=== PATIENT | female | born 1955 | race Caucasian/White ===

== ENCOUNTER 2016-07-24 22:29 | Emergency (ER) | payer OTHER ==
[~2016-07-24] VITALS: Ht 162.6 cm; Wt 154.1 kg
[~2016-07-24 22:29] MED LIST: ABILIFY2 MG PO; ACIDOPHILUS1 EAC1 PO; ADULT LOW DOSE81 M1 PO; ADULT MULTIVI200 MCG PO; ADULT ONE DAI200 MCG PO; ADVAIR 250-501 EACH IH; ADVAIR 250/501 DISK IH; ALBUTEROL SULF8.5 GM IH; ALBUTEROL17 GM; ALDACTONE12.5 MG PO; ALLEGRA ALLERG180 MG PO; ALLEGRA180 MG PO; ALPRAZOLAM0.5 MG PO; ANIMAL CHEWS1 EACH PO; ASMANEX TW200 MICRO1 IH; ASPIR 8181 M1 PO; ASPIR 8181 MG PO; ASPIR-LOW81 MG PO; ASPIRIN325 MG PO; ASPIRIN81 M1 PO; ASPIRIN81 M2 PO; ATORVASTATIN CA10 MG PO; Asmanex Twisthaler 2 IH; Aspirin E.C. PO; BABY ASPIRIN81 M1 PO; BLACK COHOSH; BLACK COHOSH160 MG PO; CALAN120 MG PO; CALAN80 MG PO; CALCIO DEL MAR500 MG PO; CALCIUM + D SO1 EACH PO; CALCIUM + VITA1 EAC2 PO; CALCIUM + VITA1 EACH PO; CALCIUM +D & M1 EACH PO; CALCIUM 1,2001 EACH PO; CALCIUM 500 +1 EACH PO; CALCIUM 500 MG1 EACH PO; CALCIUM 600 WI1 EAC2 PO; CALCIUM500 M4 PO; CALCIUM600 MG PO; CLARITIN,ALAVAR10 MG PO; CLARITIN10 M3 PO; CLARITIN10 MG PO; CLEOCIN300 MG PO; CLINDAMYCIN HC300 MG PO; COZAAR25 MG PO; CYMBALTA60 MG PO; Claritin,Alavart PO; DAILY VITAMIN1 EAC8 PO; DEPAKOTE ER500 MG PO; DICLOFENAC SODI75 MG PO; DIGESTIVE PROB1 EACH PO; EFFEXOR XR150 MG PO; FLORASTOR250 MG PO; FUROSEMIDE20 MG PO; FUROSEMIDE40 MG PO; HYDROCODON-ACE1 EAC7 PO; IMITREX100 MG PO; Imitrex PO; K-DUR20 MEQ PO; K-LOR20 MEQ PO; KEFLEX500 MG PO; KLOR-CON M2020 MEQ PO; LASIX20 MG PO; LASIX40 MG PO; LEG CRAMP RELIEF PO; LEVAQUIN750 MG PO; LEVO-T75 MCG PO; LEVOTHYROXINE75 MCG PO; LO-DOSE ASPIRIN81 M1 PO; LOSARTAN POTASS25 MG PO; MAXAIR AUTOHALE14 GM; MAXALT MLT10 MG PO; MAXALT10 MG PO; MEDROL DOSEPAK4 MG PO; MELATIN3 MG PO; MENOPAUSE SUPPO20 MG PO; MINOCYCLINE HC100 MG PO; MOMETASONE; MONTELUKAST SOD10 MG PO; MORPHINE SULFAT15 M1 PO; MORPHINE SULFAT15 MG PO; MOTRIN IB200 MG PO; MOTRIN400 MG PO; MOTRIN600 MG PO; MULTI-VITAMIN1 EAC3 PO; MULTIVITAMIN1 EAC1 PO; MYRBETRIQ25 MG PO; Medrol PO; NAMENDA10 MG PO; NAPROXEN250 M1 PO; NASONEX17 GM BOTH NARES; NORCO 5/3251 TABLET PO; ONE DAILY WOME1 EAC2 PO; OXYCODONE-ACET1 EACH PO; PERCOCET 5/31 TABLET PO; PERCOCET 7.5-51 EACH PO; POTASSIUM CHLO20 ME1 PO; POTASSIUM CHLO20 MEQ PO; PREDNISONE20 MG PO; PREDNISONE50 MG PO; PROAIR HFA8.5 GM IH; PROBIOTIC GUMMIES PO; PROTONIX20 MG PO; PROTONIX40 MG PO; PROVENTIL HFA6.7 GM IH; PROVENTIL,2.5 MG/0.5; PROVENTIL,2.5 MG/3 M IH; PROVENTIL17 G1 IH; Protonix PO; Proventil IH; REFRESH EYE DR1 EACH BOTH EYES; REFRESH LI300 DROP/1 BOTH EYES; REFRESH OPTIVE10 ML BOTH EYES; REFRESH PLUS1 EACH BOTH EYES; REFRESH TEARS15 ML BOTH EYES; SANTYL30 GM TP; SIMVASTATIN20 MG PO; SINGULAIR10 MG PO; SPIRONOLACTONE25 MG PO; SYMBICORT60 INHALAT; SYMBICORT60 INHALAT IH; SYNTHROID75 MCG PO; SYSTANE ULTRA 015 ML BOTH EYES; Singulair PO; TOPAMAX100 MG PO; TRAMADOL HCL50 MG PO; TYLENOL EXTRA500 MG PO; TYLENOL PM1 CAPLET PO; Tamiflu PO; ULTRAM50 MG PO; VALERIAN ROOT100 MG PO; VENLAFAXINE HC150 M1; VENLAFAXINE HC150 M1 PO; VENLAFAXINE HC150 MG PO; VENTOLIN HFA18 GM IH; VERAPAMIL HCL120 M2 PO; VERAPAMIL HCL120 MG PO; VERAPAMIL HCL80 MG PO; VITAMIN C1000 MG PO; VOLTAREN 1% GE100 GM; VOLTAREN 1% GE100 GM TP; VOLTAREN75 MG PO; Voltaren PO; XARELTO20 MG PO; ZITHROMAX Z-PA250 MG PO; ZITHROMAX500 MG PO; ZOCOR20 MG PO; ZOFRAN8 MG PO; [UNRECOGNIZED DRUG - OTHER]; [UNRECOGNIZED DRUG - REMARK] PO
[2016-07-24 23:28] LABS: HEMATOCRIT 36.8 % (36.0-46.0); MCH 30.4 PG (29.0-34.0); MCHC 32.3 G/DL (30.0-36.0); MCV 93.9 FL (83-99); MEAN PLAT.VOLUME 10.5 uM^3 (9.5-12.4); PLATELET COUNT 207 K/uL (156-360); RBC DIS.WIDTH-CV 14.8 % (11.8-14.6); RBC DIS.WIDTH-SD 47.9 % (39-53); RED BLOOD COUNT 3.92 M/uL (3.80-5.20); WHITE BLOOD COUNT 7.4 K/uL (4.1-10.2)
[2016-07-24 23:44] LABS: CHLORIDE 104 mEq/L (99-109); POTASSIUM 3.9 mEq/L (3.7-5.4); SODIUM 142 mEq/L (136-147)
[2016-07-24 23:47] LABS: GLUCOSE 113 mg/dL (70-99)
[2016-07-24 23:48] LABS: ANION GAP 9 MEQ/L (2-14)
[2016-07-24 23:49] LABS: TOTAL BILIRUBIN 0.3 mg/dL (0.0-1.0)
[2016-07-24 23:50] LABS: ALKALINE PHOSPHATASE 87 IU/L (3-129); GFR ESTIMATE (CALCULATED) > 59 mL/min/; TROP-I INTERPRETATION NEGATIVE; TROPONIN-I < 0.01 ng/mL (0.0-0.30)
[2016-07-24 23:51] LABS: UREA NITROGEN (BUN) 20 mg/dL (9-23)
[2016-07-24 23:54] LABS: LIPASE 20 U/L (1.0-51.0)
[2016-07-25 01:51] LABS: TROP-I INTERPRETATION NEGATIVE; TROPONIN-I < 0.01 ng/mL (0.0-0.30)
[2016-07-25 02:00] VITALS: BP 112/55
== END 2016-07-25 02:51 | disposition home or self-care (01) ==
LOC: EME 22:29
PROVIDERS: Emergency Medicine
DX: R07.9 Chest pain, unspecified (principal); J45.909 Unspecified asthma, uncomplicated; I48.91 Unspecified atrial fibrillation; K21.9 Gastro-esophageal reflux disease without esophagitis; E78.5 Hyperlipidemia, unspecified; Z86.718 Personal history of other venous thrombosis and embolism
CPT/HCPCS: 71010; 80053; 83690; 83880; 84484; 85027; 93005; 99281; 99285

== ENCOUNTER 2016-08-08 23:34 | Emergency (ER) | payer OTHER ==
[~2016-08-08] VITALS: Ht 162.6 cm; Wt 151.4 kg
[2016-08-09 00:28] LABS: HEMATOCRIT 37.6 % (36.0-46.0); MCH 30.2 PG (29.0-34.0); MCHC 32.2 G/DL (30.0-36.0); MCV 93.8 FL (83-99); MEAN PLAT.VOLUME 10.5 uM^3 (9.5-12.4); PLATELET COUNT 195 K/uL (156-360); RBC DIS.WIDTH-CV 14.7 % (11.8-14.6); RED BLOOD COUNT 4.01 M/uL (3.80-5.20); WHITE BLOOD COUNT 7.1 K/uL (4.1-10.2)
[2016-08-09 00:45] LABS: CHLORIDE 101 mEq/L (99-109); POTASSIUM 4.4 mEq/L (3.7-5.4); SODIUM 140 mEq/L (136-147)
[2016-08-09 00:47] LABS: GLUCOSE 101 mg/dL (70-99)
[2016-08-09 00:48] LABS: ANION GAP 11 MEQ/L (2-14)
[2016-08-09 00:51] LABS: GFR ESTIMATE (CALCULATED) > 59 mL/min/
[2016-08-09 00:52] LABS: UREA NITROGEN (BUN) 18 mg/dL (9-23)
[2016-08-09 00:55] LABS: TROP-I INTERPRETATION NEGATIVE; TROPONIN-I < 0.01 ng/mL (0.0-0.30)
[2016-08-09 02:03] LABS: TROP-I INTERPRETATION NEGATIVE; TROPONIN-I < 0.01 ng/mL (0.0-0.30)
[2016-08-09 02:53] VITALS: BP 117/76
== END 2016-08-09 02:55 | disposition home or self-care (01) ==
LOC: EME → EDBD 23:34 → EME 23:34
PROVIDERS: Emergency Medicine
DX: R07.9 Chest pain, unspecified (principal); J45.909 Unspecified asthma, uncomplicated; I50.9 Heart failure, unspecified; G89.29 Other chronic pain; E78.5 Hyperlipidemia, unspecified; K21.9 Gastro-esophageal reflux disease without esophagitis; Z86.718 Personal history of other venous thrombosis and embolism
CPT/HCPCS: 71020; 80048; 84484; 85027; 93005; 99281; 99284

== ENCOUNTER 2016-09-06 12:48 | Observation (INO) | payer OTHER ==
[~2016-09-06] VITALS: Ht 162.6 cm; Wt 150.6 kg
[2016-09-06 14:15] LABS: HEMATOCRIT 36.2 % (36.0-46.0); MCH 29.9 PG (29.0-34.0); MCV 93.3 FL (83-99); MEAN PLAT.VOLUME 10.1 uM^3 (9.5-12.4); PLATELET COUNT 200 K/uL (156-360); RBC DIS.WIDTH-CV 14.2 % (11.8-14.6); RBC DIS.WIDTH-SD 46.3 % (39-53); RED BLOOD COUNT 3.88 M/uL (3.80-5.20)
[2016-09-06 14:24] LABS: CHLORIDE 103 mEq/L (99-109); POTASSIUM 4.1 mEq/L (3.7-5.4); SODIUM 141 mEq/L (136-147)
[2016-09-06 14:26] LABS: GLUCOSE 93 mg/dL (70-99)
[2016-09-06 14:27] LABS: ANION GAP 8 MEQ/L (2-14)
[2016-09-06 14:28] LABS: TOTAL BILIRUBIN 0.6 mg/dL (0.0-1.0)
[2016-09-06 14:30] LABS: ALKALINE PHOSPHATASE 87 IU/L (3-129); GFR ESTIMATE (CALCULATED) > 59 mL/min/
[2016-09-06 14:31] LABS: UREA NITROGEN (BUN) 17 mg/dL (9-23)
[2016-09-06 14:44] LABS: TROP-I INTERPRETATION NEGATIVE; TROPONIN-I < 0.01 ng/mL (0.0-0.30)
[2016-09-06] MEDS ORDERED: MELATONIN10 M1 PO (18:34)
[2016-09-06 19:48] VITALS: BP 145/85
[2016-09-06 20:00] VITALS: BP 122/60
[2016-09-06 21:53] LABS: TROP-I INTERPRETATION NEGATIVE; TROPONIN-I < 0.01 ng/mL (0.0-0.30)
[2016-09-07 00:11] VITALS: BP 136/66
[2016-09-07 02:34] LABS: HEMATOCRIT 35.8 % (36.0-46.0); MCH 29.8 PG (29.0-34.0); MCHC 31.8 G/DL (30.0-36.0); MCV 93.7 FL (83-99); MEAN PLAT.VOLUME 10.1 uM^3 (9.5-12.4); PLATELET COUNT 188 K/uL (156-360); RBC DIS.WIDTH-CV 14.4 % (11.8-14.6); RBC DIS.WIDTH-SD 46.8 % (39-53); RED BLOOD COUNT 3.82 M/uL (3.80-5.20); WHITE BLOOD COUNT 6.6 K/uL (4.1-10.2)
[2016-09-07 02:57] LABS: TROP-I INTERPRETATION NEGATIVE; TROPONIN-I < 0.01 ng/mL (0.0-0.30)
[2016-09-07 03:05] LABS: CHLORIDE 105 mEq/L (99-109); SODIUM 144 mEq/L (136-147)
[2016-09-07 03:07] LABS: GLUCOSE 95 mg/dL (70-99)
[2016-09-07 03:09] LABS: ANION GAP 8 MEQ/L (2-14); TOTAL BILIRUBIN 0.5 mg/dL (0.0-1.0)
[2016-09-07 03:11] LABS: ALKALINE PHOSPHATASE 87 IU/L (3-129); GFR ESTIMATE (CALCULATED) > 59 mL/min/
[2016-09-07 03:12] LABS: UREA NITROGEN (BUN) 18 mg/dL (9-23)
[2016-09-07 08:20] VITALS: BP 120/56
== END 2016-09-07 13:21 | disposition home or self-care (01) ==
LOC: EME → EDBD 12:48 → EDOF 18:30 → 5WEST 19:49
PROVIDERS: Emergency Medicine; Internal Medicine
DX: R07.9 Chest pain, unspecified (principal); I10 Essential (primary) hypertension; E78.5 Hyperlipidemia, unspecified; E66.01 Morbid (severe) obesity due to excess calories; Z68.43 Body mass index [BMI] 50.0-59.9, adult; I48.0 Paroxysmal atrial fibrillation; K21.9 Gastro-esophageal reflux disease without esophagitis; R42 Dizziness and giddiness; R11.0 Nausea; Z79.01 Long term (current) use of anticoagulants; E03.9 Hypothyroidism, unspecified; F32.9 Major depressive disorder, single episode, unspecified; D64.9 Anemia, unspecified; Z88.5 Allergy status to narcotic agent; Z88.7 Allergy status to serum and vaccine; Z88.2 Allergy status to sulfonamides; Z88.8 Allergy status to other drugs, medicaments and biological substances
CPT/HCPCS: 71010; 80053; 84484; 85027; 93005; 94640; 94640 76; 99202; 99281; 99285; G0378

== ENCOUNTER 2016-09-17 23:20 | Observation (INO) | payer OTHER ==
[~2016-09-17] VITALS: Ht 162.6 cm; Wt 155.0 kg
[~2016-09-17 23:20] MED LIST changes: +MELATONIN10 M1 PO
[2016-09-17 23:58] LABS: HEMATOCRIT 39.7 % (36.0-46.0); MCH 30.3 PG (29.0-34.0); MCHC 32.5 G/DL (30.0-36.0); MCV 93.2 FL (83-99); MEAN PLAT.VOLUME 10.4 uM^3 (9.5-12.4); PLATELET COUNT 198 K/uL (156-360); RBC DIS.WIDTH-CV 14.2 % (11.8-14.6); RED BLOOD COUNT 4.26 M/uL (3.80-5.20); WHITE BLOOD COUNT 7.5 K/uL (4.1-10.2)
[2016-09-18 00:08] LABS: CHLORIDE 102 mEq/L (99-109); POTASSIUM 4.1 mEq/L (3.7-5.4); SODIUM 142 mEq/L (136-147)
[2016-09-18 00:10] LABS: GLUCOSE 98 mg/dL (70-99)
[2016-09-18 00:11] LABS: ANION GAP 11 MEQ/L (2-14)
[2016-09-18 00:14] LABS: GFR ESTIMATE (CALCULATED) > 59 mL/min/; UREA NITROGEN (BUN) 19 mg/dL (9-23)
[2016-09-18 00:18] LABS: TROP-I INTERPRETATION NEGATIVE; TROPONIN-I 0.02 ng/mL (0.0-0.30)
[2016-09-18] MEDS ORDERED: VERAPAMIL HCL120 MG PO (01:50)
[2016-09-18] MEDS ORDERED: FLEXERIL5 MG PO (01:52)
[2016-09-18] MEDS ORDERED: TYLENOL REGULA325 MG PO (01:53)
[2016-09-18 03:05] LABS: TOTAL BILIRUBIN 0.2 mg/dL (0.0-1.0)
[2016-09-18 03:07] VITALS: BP 139/76
[2016-09-18 03:07] LABS: ALKALINE PHOSPHATASE 96 IU/L (3-129)
[2016-09-18 03:09] LABS: DIRECT BILIRUBIN 0.1 mg/dL (0.0-0.3)
[2016-09-18 07:01] LABS: TROP-I INTERPRETATION NEGATIVE; TROPONIN-I 0.01 ng/mL (0.0-0.30)
[2016-09-18 07:32] VITALS: BP 114/72
[2016-09-18 09:40] VITALS: BP 116/67
[2016-09-18 10:59] VITALS: BP 117/70
[2016-09-18 11:51] VITALS: BP 113/70
[2016-09-18 13:03] LABS: TROP-I INTERPRETATION NEGATIVE; TROPONIN-I < 0.01 ng/mL (0.0-0.30)
[2016-09-18 16:04] VITALS: BP 123/74
== END 2016-09-18 20:11 | disposition home or self-care (01) ==
LOC: EME 23:20 → EDOF 09-18 02:15 → 5WEST 09-18 02:15
PROVIDERS: Hospitalist
DX: R07.89 Other chest pain (principal); I48.0 Paroxysmal atrial fibrillation; E86.0 Dehydration; I11.0 Hypertensive heart disease with heart failure; I50.30 Unspecified diastolic (congestive) heart failure; R42 Dizziness and giddiness; Z79.01 Long term (current) use of anticoagulants; E66.01 Morbid (severe) obesity due to excess calories; Z68.43 Body mass index [BMI] 50.0-59.9, adult; I89.0 Lymphedema, not elsewhere classified; I25.10 Atherosclerotic heart disease of native coronary artery without angina pectoris; Z86.718 Personal history of other venous thrombosis and embolism; F41.9 Anxiety disorder, unspecified; F32.9 Major depressive disorder, single episode, unspecified; E78.5 Hyperlipidemia, unspecified; E03.9 Hypothyroidism, unspecified; Z87.11 Personal history of peptic ulcer disease; G43.909 Migraine, unspecified, not intractable, without status migrainosus
CPT/HCPCS: 71020; 80048; 80076; 84484; 85027; 85379; 93005; 94640; 99202; 99281; 99285; G0378; J7030

== ENCOUNTER 2016-09-30 10:56 | Emergency (ER) | payer OTHER ==
[~2016-09-30] VITALS: Ht 162.6 cm; Wt 152.5 kg
[~2016-09-30 10:56] MED LIST changes: +FLEXERIL5 MG PO; +TYLENOL REGULA325 MG PO
[2016-09-30 13:10] VITALS: BP 132/97
== END 2016-09-30 13:10 | disposition home or self-care (01) ==
LOC: EME → EDBD 10:56 → EME 13:10
DX: S80.01XA Contusion of right knee, initial encounter (principal); S80.02XA Contusion of left knee, initial encounter; W06.XXXA Fall from bed, initial encounter; Z88.7 Allergy status to serum and vaccine; Z88.2 Allergy status to sulfonamides; Z88.6 Allergy status to analgesic agent
CPT/HCPCS: 73564; 99281; 99284

== ENCOUNTER 2016-10-08 00:58 | Emergency (ER) | payer OTHER ==
[~2016-10-08] VITALS: Ht 162.6 cm; Wt 150.4 kg
[2016-10-08 02:13] LABS: HEMATOCRIT 39.5 % (36.0-46.0); MCHC 30.9 G/DL (30.0-36.0); MEAN PLAT.VOLUME 10.7 uM^3 (9.5-12.4); PLATELET COUNT 191 K/uL (156-360); RBC DIS.WIDTH-SD 48.3 % (39-53); WHITE BLOOD COUNT 7.3 K/uL (4.1-10.2)
[2016-10-08 02:28] LABS: CHLORIDE 102 mEq/L (99-109); POTASSIUM 4.3 mEq/L (3.7-5.4); SODIUM 141 mEq/L (136-147)
[2016-10-08 02:29] LABS: GLUCOSE 97 mg/dL (70-99)
[2016-10-08 02:31] LABS: ANION GAP 11 MEQ/L (2-14)
[2016-10-08 02:33] LABS: GFR ESTIMATE (CALCULATED) > 59 mL/min/
[2016-10-08 02:34] LABS: UREA NITROGEN (BUN) 17 mg/dL (9-23)
[2016-10-08 02:35] LABS: TROP-I INTERPRETATION NEGATIVE; TROPONIN-I < 0.01 ng/mL (0.0-0.30)
[2016-10-08 05:07] LABS: INTER. NORMALIZED RATIO 1.5; PROTHROMBIN TIME 15.7 (9.2-11.2); PTT 44.6 (25-32)
[2016-10-08 05:13] LABS: TROP-I INTERPRETATION NEGATIVE; TROPONIN-I < 0.01 ng/mL (0.0-0.30)
[2016-10-08 06:29] VITALS: BP 116/62
== END 2016-10-08 06:37 | disposition home or self-care (01) ==
LOC: EME 00:58
PROVIDERS: Emergency Medicine
DX: R07.89 Other chest pain (principal); I48.91 Unspecified atrial fibrillation; Z79.01 Long term (current) use of anticoagulants; J45.909 Unspecified asthma, uncomplicated; I11.0 Hypertensive heart disease with heart failure; I50.9 Heart failure, unspecified; G89.29 Other chronic pain; E78.5 Hyperlipidemia, unspecified; I25.2 Old myocardial infarction; K21.9 Gastro-esophageal reflux disease without esophagitis; Z87.442 Personal history of urinary calculi; Z86.718 Personal history of other venous thrombosis and embolism
CPT/HCPCS: 71020; 80048; 84484; 85027; 85610; 85730; 93005; 99281; 99284

== ENCOUNTER 2016-10-23 23:42 | Emergency (ER) | payer OTHER ==
[~2016-10-23] VITALS: Ht 162.6 cm; Wt 152.3 kg
[2016-10-24 00:03] LABS: HEMATOCRIT 39.1 % (36.0-46.0); MCH 29.2 PG (29.0-34.0); MCHC 31.2 G/DL (30.0-36.0); MCV 93.5 FL (83-99); MEAN PLAT.VOLUME 9.9 uM^3 (9.5-12.4); PLATELET COUNT 200 K/uL (156-360); RBC DIS.WIDTH-CV 13.8 % (11.8-14.6); RBC DIS.WIDTH-SD 47.2 % (39-53); RED BLOOD COUNT 4.18 M/uL (3.80-5.20); WHITE BLOOD COUNT 7.1 K/uL (4.1-10.2)
[2016-10-24 00:25] LABS: TROP-I INTERPRETATION NEGATIVE; TROPONIN-I < 0.01 ng/mL (0.0-0.30)
[2016-10-24 00:29] LABS: D-DIMER ELISA 0.26 mg/L FEU (< 0.57); INTER. NORMALIZED RATIO 1.1; PROTHROMBIN TIME 11.7 (9.2-11.2); PTT 32.5 (25-32)
[2016-10-24 00:30] LABS: CHLORIDE 102 mEq/L (99-109); POTASSIUM 4.2 mEq/L (3.7-5.4); SODIUM 142 mEq/L (136-147)
[2016-10-24 00:32] LABS: GLUCOSE 97 mg/dL (70-99)
[2016-10-24 00:33] LABS: ANION GAP 9 MEQ/L (2-14)
[2016-10-24 00:36] LABS: GFR ESTIMATE (CALCULATED) > 59 mL/min/
[2016-10-24 00:37] LABS: UREA NITROGEN (BUN) 19 mg/dL (9-23)
[2016-10-24 03:15] LABS: TROP-I INTERPRETATION NEGATIVE; TROPONIN-I < 0.01 ng/mL (0.0-0.30)
[2016-10-24 03:54] VITALS: BP 129/60
== END 2016-10-24 03:56 | disposition home or self-care (01) ==
LOC: EME 23:42
PROVIDERS: Emergency Medicine
DX: R07.9 Chest pain, unspecified (principal); R42 Dizziness and giddiness; I11.0 Hypertensive heart disease with heart failure; I50.9 Heart failure, unspecified; E78.5 Hyperlipidemia, unspecified; I25.2 Old myocardial infarction; Z88.7 Allergy status to serum and vaccine; Z88.2 Allergy status to sulfonamides; Z88.6 Allergy status to analgesic agent
CPT/HCPCS: 71020; 80048; 84484; 85027; 85379; 85610; 85730; 93005; 99281; 99283

== ENCOUNTER 2016-11-13 00:13 | Observation (INO) | payer OTHER ==
[~2016-11-13] VITALS: Ht 162.6 cm; Wt 144.9 kg
[2016-11-13 00:59] LABS: MCH 29.1 PG (29.0-34.0); MCHC 32.1 G/DL (30.0-36.0); MCV 90.9 FL (83-99); MEAN PLAT.VOLUME 10.6 uM^3 (9.5-12.4); PLATELET COUNT 194 K/uL (156-360); RBC DIS.WIDTH-CV 14.4 % (11.8-14.6); RBC DIS.WIDTH-SD 47.9 % (39-53); RED BLOOD COUNT 4.29 M/uL (3.80-5.20); WHITE BLOOD COUNT 8.4 K/uL (4.1-10.2)
[2016-11-13 01:09] LABS: CHLORIDE 102 mEq/L (99-109); POTASSIUM 4.1 mEq/L (3.7-5.4); SODIUM 140 mEq/L (136-147)
[2016-11-13 01:11] LABS: GLUCOSE 96 mg/dL (70-99)
[2016-11-13 01:12] LABS: ANION GAP 11 MEQ/L (2-14)
[2016-11-13 01:15] LABS: GFR ESTIMATE (CALCULATED) > 59 mL/min/
[2016-11-13 01:16] LABS: UREA NITROGEN (BUN) 18 mg/dL (9-23)
[2016-11-13 01:20] LABS: TROP-I INTERPRETATION NEGATIVE; TROPONIN-I < 0.01 ng/mL (0.0-0.30)
[2016-11-13 02:08] LABS: INTER. NORMALIZED RATIO 1.4; PROTHROMBIN TIME 14.4 (9.2-11.2); PTT 41.1 (25-32)
[2016-11-13 05:28] VITALS: BP 118/59
[2016-11-13 07:10] VITALS: BP 118/67
[2016-11-13 10:27] LABS: TROP-I INTERPRETATION NEGATIVE; TROPONIN-I < 0.01 ng/mL (0.0-0.30)
[2016-11-13 12:56] VITALS: BP 112/62
[2016-11-13] MEDS ORDERED: CALAN80 MG PO (13:49)
[2016-11-13 15:33] LABS: TROP-I INTERPRETATION NEGATIVE; TROPONIN-I < 0.01 ng/mL (0.0-0.30)
[2016-11-13 16:09] VITALS: BP 100/55
== END 2016-11-13 18:07 | disposition home or self-care (01) ==
LOC: EME → EDBD 00:13 → EDOF 03:34 → 5WEST 03:34
PROVIDERS: Emergency Medicine; Hospitalist; Internal Medicine
DX: R07.89 Other chest pain (principal); I11.0 Hypertensive heart disease with heart failure; I48.91 Unspecified atrial fibrillation; I50.30 Unspecified diastolic (congestive) heart failure; I25.10 Atherosclerotic heart disease of native coronary artery without angina pectoris; G89.29 Other chronic pain; E03.9 Hypothyroidism, unspecified; E78.5 Hyperlipidemia, unspecified; Z79.01 Long term (current) use of anticoagulants; E66.01 Morbid (severe) obesity due to excess calories; Z68.43 Body mass index [BMI] 50.0-59.9, adult; J45.909 Unspecified asthma, uncomplicated
CPT/HCPCS: 71010; 80048; 84484; 85027; 85610; 85730; 93005; 99202; 99281; 99285; G0378

== ENCOUNTER 2016-12-03 22:33 | Emergency (ER) | payer OTHER ==
[~2016-12-03] VITALS: Ht 162.6 cm; Wt 149.4 kg
[2016-12-03 23:02] LABS: EOSINOPHIL (%) 1.9 % (0-5); EOSINOPHIL COUNT 0.2 K/uL (0-0.3); IMMATURE GRANULOCYTE (%) 0.6 % (0.0-0.7); IMMATURE GRANULOCYTE COUNT 0.1 K/uL; INSTRUMENT ABS NEUTROPHIL CT 5.1 K/uL; LYMPHOCYTE COUNT 2.5 K/uL (1.0-2.8); MCH 29.6 PG (29.0-34.0); MCHC 32.6 G/DL (30.0-36.0); MCV 90.9 FL (83-99); MEAN PLAT.VOLUME 10.2 uM^3 (9.5-12.4); MONOCYTE (%) 8.2 % (3-12); MONOCYTE COUNT 0.7 K/uL (0-0.8); NEUTROPHIL (%) 59.9 % (45-76); NEUTROPHIL COUNT 5.1 K/uL (1.8-6.4); PLATELET COUNT 204 K/uL (156-360); RBC DIS.WIDTH-CV 14.6 % (11.8-14.6); RBC DIS.WIDTH-SD 48.5 % (39-53); RED BLOOD COUNT 4.29 M/uL (3.80-5.20); WHITE BLOOD COUNT 8.5 K/uL (4.1-10.2)
[2016-12-03 23:09] LABS: CHLORIDE 103 mEq/L (99-109); POTASSIUM 3.4 mEq/L (3.7-5.4); SODIUM 141 mEq/L (136-147)
[2016-12-03 23:10] LABS: MAGNESIUM 1.8 mg/dL (1.3-2.7)
[2016-12-03 23:11] LABS: GLUCOSE 101 mg/dL (70-99)
[2016-12-03 23:12] LABS: ANION GAP 11 MEQ/L (2-14)
[2016-12-03 23:15] LABS: GFR ESTIMATE (CALCULATED) > 59 mL/min/; INTER. NORMALIZED RATIO 1.4; PROTHROMBIN TIME 14.4 (9.2-11.2)
[2016-12-03 23:16] LABS: UREA NITROGEN (BUN) 16 mg/dL (9-23)
[2016-12-03 23:23] LABS: TROP-I INTERPRETATION NEGATIVE; TROPONIN-I < 0.01 ng/mL (0.0-0.30)
[2016-12-04 02:41] LABS: TROP-I INTERPRETATION NEGATIVE; TROPONIN-I < 0.01 ng/mL (0.0-0.30)
[2016-12-04 03:05] VITALS: BP 124/81
== END 2016-12-04 03:30 | disposition home or self-care (01) ==
LOC: EME 22:33
PROVIDERS: Emergency Medicine
DX: R07.9 Chest pain, unspecified (principal); I50.9 Heart failure, unspecified; I10 Essential (primary) hypertension; E78.5 Hyperlipidemia, unspecified; J45.909 Unspecified asthma, uncomplicated; I48.91 Unspecified atrial fibrillation; Z86.718 Personal history of other venous thrombosis and embolism; Z79.01 Long term (current) use of anticoagulants
CPT/HCPCS: 71010; 80048; 83735; 84484; 85025; 85610; 85730; 93005; 99281; 99285

== ENCOUNTER 2016-12-29 23:46 | Emergency (ER) | payer OTHER ==
[~2016-12-29] VITALS: Ht 162.6 cm; Wt 145.4 kg
[2016-12-30 00:24] LABS: HEMATOCRIT 38.2 % (36.0-46.0); MCHC 31.4 G/DL (30.0-36.0); MCV 92.3 FL (83-99); MEAN PLAT.VOLUME 10.5 uM^3 (9.5-12.4); PLATELET COUNT 199 K/uL (156-360); RBC DIS.WIDTH-SD 51.3 % (39-53); RED BLOOD COUNT 4.14 M/uL (3.80-5.20)
[2016-12-30 00:35] LABS: CHLORIDE 102 mEq/L (99-109); POTASSIUM 3.8 mEq/L (3.7-5.4); SODIUM 144 mEq/L (136-147)
[2016-12-30 00:37] LABS: GLUCOSE 93 mg/dL (70-99)
[2016-12-30 00:38] LABS: ANION GAP 13 MEQ/L (2-14)
[2016-12-30 00:41] LABS: GFR ESTIMATE (CALCULATED) > 59 mL/min/
[2016-12-30 00:42] LABS: UREA NITROGEN (BUN) 16 mg/dL (9-23)
[2016-12-30 00:46] LABS: TROP-I INTERPRETATION NEGATIVE; TROPONIN-I < 0.01 ng/mL (0.0-0.30)
[2016-12-30 02:38] LABS: TOTAL BILIRUBIN 0.3 mg/dL (0.0-1.0)
[2016-12-30 02:39] LABS: ALKALINE PHOSPHATASE 88 IU/L (3-129)
[2016-12-30 02:41] LABS: PTT 36.4 (25-32)
[2016-12-30 02:42] LABS: DIRECT BILIRUBIN 0.2 mg/dL (0.0-0.3)
[2016-12-30 02:43] LABS: LIPASE 26 U/L (1.0-51.0)
[2016-12-30 03:16] LABS: TROP-I INTERPRETATION NEGATIVE; TROPONIN-I < 0.01 ng/mL (0.0-0.30)
[2016-12-30 03:47] LABS: INTER. NORMALIZED RATIO 1.3; PROTHROMBIN TIME 13.3 (9.2-11.2)
[2016-12-30 05:45] VITALS: BP 105/73
== END 2016-12-30 05:45 | disposition home or self-care (01) ==
LOC: EME 23:46
PROVIDERS: Emergency Medicine
DX: R07.89 Other chest pain (principal); I50.9 Heart failure, unspecified; I10 Essential (primary) hypertension; J45.909 Unspecified asthma, uncomplicated; Z87.442 Personal history of urinary calculi; Z79.01 Long term (current) use of anticoagulants; K21.9 Gastro-esophageal reflux disease without esophagitis; E78.5 Hyperlipidemia, unspecified; Z88.7 Allergy status to serum and vaccine; Z88.2 Allergy status to sulfonamides; Z88.8 Allergy status to other drugs, medicaments and biological substances; Z88.5 Allergy status to narcotic agent
CPT/HCPCS: 71020; 80048; 80076; 83690; 83880; 84484; 85027; 85610; 85730; 93005; 99281; 99284

== ENCOUNTER 2017-01-09 22:11 | Emergency (ER) | payer OTHER ==
[~2017-01-09] VITALS: Ht 162.6 cm; Wt 82.1 kg
[2017-01-09 22:50] LABS: HEMATOCRIT 37.3 % (36.0-46.0); MCH 29.5 PG (29.0-34.0); MCHC 32.2 G/DL (30.0-36.0); MCV 91.6 FL (83-99); MEAN PLAT.VOLUME 10.1 uM^3 (9.5-12.4); PLATELET COUNT 200 K/uL (156-360); RBC DIS.WIDTH-CV 14.9 % (11.8-14.6); RBC DIS.WIDTH-SD 50.5 % (39-53); RED BLOOD COUNT 4.07 M/uL (3.80-5.20); WHITE BLOOD COUNT 7.9 K/uL (4.1-10.2)
[2017-01-09 23:01] LABS: CHLORIDE 103 mEq/L (99-109); SODIUM 140 mEq/L (136-147)
[2017-01-09 23:03] LABS: GLUCOSE 96 mg/dL (70-99)
[2017-01-09 23:04] LABS: ANION GAP 9 MEQ/L (2-14)
[2017-01-09 23:07] LABS: GFR ESTIMATE (CALCULATED) > 59 mL/min/
[2017-01-09 23:08] LABS: UREA NITROGEN (BUN) 19 mg/dL (9-23)
[2017-01-09 23:11] LABS: TROP-I INTERPRETATION NEGATIVE; TROPONIN-I < 0.01 ng/mL (0.0-0.30)
[2017-01-10 01:50] LABS: TROP-I INTERPRETATION NEGATIVE; TROPONIN-I < 0.01 ng/mL (0.0-0.30)
[2017-01-10 02:05] VITALS: BP 133/78
== END 2017-01-10 02:07 | disposition home or self-care (01) ==
LOC: EME → EDBD 22:11 → EME 01-10 02:07
PROVIDERS: Emergency Medicine
DX: R07.89 Other chest pain (principal); J45.909 Unspecified asthma, uncomplicated; I11.0 Hypertensive heart disease with heart failure; I50.9 Heart failure, unspecified; E11.9 Type 2 diabetes mellitus without complications; K21.9 Gastro-esophageal reflux disease without esophagitis; E78.5 Hyperlipidemia, unspecified; Z87.442 Personal history of urinary calculi
CPT/HCPCS: 71020; 80048; 83880; 84376 90; 84484; 85027; 93005; 99281; 99284

== ENCOUNTER 2017-02-22 00:07 | Emergency (ER) | payer OTHER ==
[~2017-02-22] VITALS: Ht 162.6 cm; Wt 146.3 kg
[2017-02-22 00:32] LABS: HEMATOCRIT 36.7 % (36.0-46.0); MCH 29.7 PG (29.0-34.0); MCHC 31.9 G/DL (30.0-36.0); MCV 93.1 FL (83-99); MEAN PLAT.VOLUME 10.3 uM^3 (9.5-12.4); PLATELET COUNT 201 K/uL (156-360); RBC DIS.WIDTH-CV 14.2 % (11.8-14.6); RBC DIS.WIDTH-SD 47.9 % (39-53); RED BLOOD COUNT 3.94 M/uL (3.80-5.20); WHITE BLOOD COUNT 6.7 K/uL (4.1-10.2)
[2017-02-22 00:38] LABS: INTER. NORMALIZED RATIO 1.4; PROTHROMBIN TIME 15.6 SEC (10.2-12.9)
[2017-02-22 00:41] LABS: CHLORIDE 103 mEq/L (99-109); POTASSIUM 4.2 mEq/L (3.7-5.4); PTT 35.2 SEC (25-37); SODIUM 143 mEq/L (136-147)
[2017-02-22 00:43] LABS: GLUCOSE 85 mg/dL (70-99)
[2017-02-22 00:44] LABS: ANION GAP 11 MEQ/L (2-14)
[2017-02-22 00:47] LABS: GFR ESTIMATE (CALCULATED) 44 mL/min/; UREA NITROGEN (BUN) 23 mg/dL (9-23)
[2017-02-22 00:55] LABS: TROP-I INTERPRETATION NEGATIVE; TROPONIN-I < 0.01 ng/mL (0.0-0.30)
[2017-02-22 01:36] VITALS: BP 120/81
== END 2017-02-22 01:38 | disposition home or self-care (01) ==
LOC: EME → EDBD 00:07 → EME 01:38
PROVIDERS: Emergency Medicine
DX: R07.9 Chest pain, unspecified (principal); I11.0 Hypertensive heart disease with heart failure; I50.9 Heart failure, unspecified; I25.2 Old myocardial infarction; E78.5 Hyperlipidemia, unspecified; K21.9 Gastro-esophageal reflux disease without esophagitis; I48.91 Unspecified atrial fibrillation; F32.9 Major depressive disorder, single episode, unspecified; F41.9 Anxiety disorder, unspecified; J45.909 Unspecified asthma, uncomplicated; Z87.442 Personal history of urinary calculi; Z88.7 Allergy status to serum and vaccine; Z88.2 Allergy status to sulfonamides; Z88.5 Allergy status to narcotic agent
CPT/HCPCS: 71020; 80048; 84484; 85027; 85610; 85730; 93005; 99281; 99284

== ENCOUNTER 2017-03-05 01:15 | Emergency (ER) | payer OTHER ==
[~2017-03-05] VITALS: Ht 162.6 cm; Wt 145.0 kg
[2017-03-05 01:59] LABS: EOSINOPHIL (%) 1.8 % (0-5); EOSINOPHIL COUNT 0.1 K/uL (0-0.3); HEMATOCRIT 39.3 % (36.0-46.0); IMMATURE GRANULOCYTE (%) 0.4 % (0.0-0.7); INSTRUMENT ABS NEUTROPHIL CT 4.1 K/uL; LYMPHOCYTE COUNT 2.2 K/uL (1.0-2.8); MCH 29.4 PG (29.0-34.0); MCHC 31.6 G/DL (30.0-36.0); MCV 93.1 FL (83-99); MEAN PLAT.VOLUME 10.4 uM^3 (9.5-12.4); MONOCYTE (%) 10.3 % (3-12); MONOCYTE COUNT 0.8 K/uL (0-0.8); NEUTROPHIL (%) 56.6 % (45-76); NEUTROPHIL COUNT 4.1 K/uL (1.8-6.4); PLATELET COUNT 207 K/uL (156-360); RBC DIS.WIDTH-SD 47.6 % (39-53); RED BLOOD COUNT 4.22 M/uL (3.80-5.20); WHITE BLOOD COUNT 7.3 K/uL (4.1-10.2)
[2017-03-05 02:05] LABS: INTER. NORMALIZED RATIO 1.2; PROTHROMBIN TIME 13.1 SEC (10.2-12.9)
[2017-03-05 02:08] LABS: PTT 31.5 SEC (25-37)
[2017-03-05 02:17] LABS: CHLORIDE 101 mEq/L (99-109); POTASSIUM 4.2 mEq/L (3.7-5.4); SODIUM 141 mEq/L (136-147)
[2017-03-05 02:18] LABS: MAGNESIUM 2.1 mg/dL (1.3-2.7)
[2017-03-05 02:19] LABS: GLUCOSE 99 mg/dL (70-99)
[2017-03-05 02:21] LABS: ANION GAP 9 MEQ/L (2-14)
[2017-03-05 02:22] LABS: TROP-I INTERPRETATION NEGATIVE; TROPONIN-I < 0.01 ng/mL (0.0-0.30)
[2017-03-05 02:23] LABS: GFR ESTIMATE (CALCULATED) > 59 mL/min/
[2017-03-05 02:24] LABS: UREA NITROGEN (BUN) 17 mg/dL (9-23)
[2017-03-05 04:47] LABS: TROP-I INTERPRETATION NEGATIVE; TROPONIN-I < 0.01 ng/mL (0.0-0.30)
[2017-03-05 05:06] VITALS: BP 119/65
== END 2017-03-05 05:33 | disposition home or self-care (01) ==
LOC: EME → EDBD 01:15 → EME 01:15
PROVIDERS: Emergency Medicine
DX: R07.89 Other chest pain (principal); I11.0 Hypertensive heart disease with heart failure; I50.9 Heart failure, unspecified; E78.5 Hyperlipidemia, unspecified; K21.9 Gastro-esophageal reflux disease without esophagitis; J45.909 Unspecified asthma, uncomplicated; Z87.442 Personal history of urinary calculi; Z88.7 Allergy status to serum and vaccine; Z88.2 Allergy status to sulfonamides; Z88.5 Allergy status to narcotic agent
CPT/HCPCS: 71010; 80048; 83735; 84484; 85025; 85610; 85730; 93005; 99281; 99284

== ENCOUNTER 2017-03-12 12:05 | Emergency (ER) | payer OTHER ==
[~2017-03-12] VITALS: Ht 162.6 cm; Wt 140.0 kg
[2017-03-12 16:30] VITALS: BP 108/79
== END 2017-03-12 16:30 | disposition home or self-care (01) ==
LOC: EME 12:05
DX: S32.2XXA Fracture of coccyx, initial encounter for closed fracture (principal); W18.30XA Fall on same level, unspecified, initial encounter; E03.9 Hypothyroidism, unspecified; E78.5 Hyperlipidemia, unspecified; I10 Essential (primary) hypertension; J45.909 Unspecified asthma, uncomplicated; Z79.01 Long term (current) use of anticoagulants; Z88.7 Allergy status to serum and vaccine; Z88.2 Allergy status to sulfonamides; Z88.5 Allergy status to narcotic agent; Z90.49 Acquired absence of other specified parts of digestive tract
CPT/HCPCS: 72100; 72220; 99281; 99283

== ENCOUNTER 2017-03-13 19:27 | Observation (INO) | payer OTHER ==
[~2017-03-13] VITALS: Ht 162.6 cm; Wt 141.0 kg
[2017-03-14] MEDS ORDERED: SYNTHROID75 MCG PO (01:55)
[2017-03-14 03:06] VITALS: BP 145/78
[2017-03-14 08:39] VITALS: BP 121/62
[2017-03-14] MEDS ORDERED: ENDOCET 5-3251 EACH PO (12:16)
[2017-03-14 12:34] VITALS: BP 97/51
[2017-03-14] MEDS ORDERED: PERCOCET 10/1 TABLET PO (23:15)
== END 2017-03-14 14:05 | disposition home or self-care (01) ==
LOC: EME 19:27 → EDOF 03-14 01:10 → ENRESERV 03-14 01:11 → 5WEST 03-14 02:59
DX: G89.11 Acute pain due to trauma (principal); S32.2XXD Fracture of coccyx, subsequent encounter for fracture with routine healing; R26.2 Difficulty in walking, not elsewhere classified; Z74.2 Need for assistance at home and no other household member able to render care; I48.0 Paroxysmal atrial fibrillation; Z79.01 Long term (current) use of anticoagulants; E66.01 Morbid (severe) obesity due to excess calories; Z68.43 Body mass index [BMI] 50.0-59.9, adult; I87.8 Other specified disorders of veins
CPT/HCPCS: 80048; 85027; 94799; 99202; 99281; 99285; G0378; G8979 GP CH; J1170; J1885

== ENCOUNTER 2017-03-14 18:27 | Emergency (ER) | payer OTHER ==
[~2017-03-14] VITALS: Ht 162.6 cm; Wt 144.2 kg
[~2017-03-14 18:27] MED LIST changes: +ENDOCET 5-3251 EACH PO
[2017-03-14 19:58] LABS: HEMATOCRIT 35.7 % (36.0-46.0); MCH 29.9 PG (29.0-34.0); MCHC 32.2 G/DL (30.0-36.0); MCV 92.7 FL (83-99); MEAN PLAT.VOLUME 10.6 uM^3 (9.5-12.4); PLATELET COUNT 154 K/uL (156-360); RBC DIS.WIDTH-CV 13.7 % (11.8-14.6); RBC DIS.WIDTH-SD 46.6 % (39-53); RED BLOOD COUNT 3.85 M/uL (3.80-5.20); WHITE BLOOD COUNT 6.2 K/uL (4.1-10.2)
[2017-03-14 20:07] LABS: CHLORIDE 102 mEq/L (99-109); POTASSIUM 4.2 mEq/L (3.7-5.4); SODIUM 142 mEq/L (136-147)
[2017-03-14 20:09] LABS: GLUCOSE 99 mg/dL (70-99)
[2017-03-14 20:10] LABS: ANION GAP 9 MEQ/L (2-14)
[2017-03-14 20:11] LABS: TOTAL BILIRUBIN 0.5 mg/dL (0.0-1.0)
[2017-03-14 20:12] LABS: ALKALINE PHOSPHATASE 109 IU/L (3-129)
[2017-03-14 20:13] LABS: GFR ESTIMATE (CALCULATED) > 59 mL/min/
[2017-03-14 20:14] LABS: UREA NITROGEN (BUN) 18 mg/dL (9-23)
[2017-03-14] MEDS ORDERED: PERCOCET 10/1 TABLET PO (23:15)
[2017-03-15 00:09] VITALS: BP 116/74
[2017-03-16] MEDS ORDERED: PREDNISONE50 MG PO (04:36)
[2017-03-16] MEDS ORDERED: VENTOLIN HFA18 GM IH (04:36)
[2017-03-16] MEDS ORDERED: AZITHROMYCIN250 MG PO (04:36)
== END 2017-03-15 00:10 | disposition home or self-care (01) ==
LOC: EME 18:27
PROVIDERS: Emergency Medicine
DX: S32.10XA Unspecified fracture of sacrum, initial encounter for closed fracture (principal); W18.30XA Fall on same level, unspecified, initial encounter; M54.5 Low back pain; Z86.718 Personal history of other venous thrombosis and embolism; Z79.01 Long term (current) use of anticoagulants; E78.5 Hyperlipidemia, unspecified; J45.909 Unspecified asthma, uncomplicated; Z90.710 Acquired absence of both cervix and uterus; Z90.49 Acquired absence of other specified parts of digestive tract
CPT/HCPCS: 74177; 80053; 85027; 99281; 99285; J7030

== ENCOUNTER 2017-03-15 22:22 | Emergency (ER) | payer OTHER ==
[~2017-03-15] VITALS: Ht 162.6 cm; Wt 144.2 kg
[~2017-03-15 22:22] MED LIST changes: +PERCOCET 10/1 TABLET PO
[2017-03-16] MEDS ORDERED: VENTOLIN HFA18 GM IH (04:36)
[2017-03-16] MEDS ORDERED: PREDNISONE50 MG PO (04:36)
[2017-03-16] MEDS ORDERED: AZITHROMYCIN250 MG PO (04:36)
[2017-03-16 06:36] VITALS: BP 123/79
== END 2017-03-16 06:37 | disposition home or self-care (01) ==
LOC: EME 22:22
DX: R20.2 Paresthesia of skin (principal); M54.9 Dorsalgia, unspecified; M79.604 Pain in right leg; M79.605 Pain in left leg; I10 Essential (primary) hypertension; E03.9 Hypothyroidism, unspecified; E78.5 Hyperlipidemia, unspecified; I48.91 Unspecified atrial fibrillation; J45.909 Unspecified asthma, uncomplicated; Z87.442 Personal history of urinary calculi; Z90.49 Acquired absence of other specified parts of digestive tract; Z86.718 Personal history of other venous thrombosis and embolism; Z79.01 Long term (current) use of anticoagulants
CPT/HCPCS: 81003; 99281; 99284; J3010

== ENCOUNTER 2017-03-18 11:24 | Observation (INO) | payer OTHER ==
[~2017-03-18] VITALS: Ht 162.6 cm; Wt 143.0 kg
[~2017-03-18 11:24] MED LIST changes: +AZITHROMYCIN250 MG PO
[2017-03-18 12:30] LABS: EOSINOPHIL (%) 2.5 % (0-5); EOSINOPHIL COUNT 0.1 K/uL (0-0.3); HEMATOCRIT 32.4 % (36.0-46.0); IMMATURE GRANULOCYTE (%) 0.4 % (0.0-0.7); INSTRUMENT ABS NEUTROPHIL CT 3.3 K/uL; LYMPHOCYTE COUNT 1.7 K/uL (1.0-2.8); MCH 29.3 PG (29.0-34.0); MCHC 32.4 G/DL (30.0-36.0); MCV 90.5 FL (83-99); MEAN PLAT.VOLUME 10.2 uM^3 (9.5-12.4); MONOCYTE (%) 8.6 % (3-12); MONOCYTE COUNT 0.5 K/uL (0-0.8); NEUTROPHIL COUNT 3.3 K/uL (1.8-6.4); PLATELET COUNT 152 K/uL (156-360); RBC DIS.WIDTH-CV 13.3 % (11.8-14.6); RBC DIS.WIDTH-SD 44.2 % (39-53); RED BLOOD COUNT 3.58 M/uL (3.80-5.20); WHITE BLOOD COUNT 5.6 K/uL (4.1-10.2)
[2017-03-18 12:39] LABS: INTER. NORMALIZED RATIO 1.4; PROTHROMBIN TIME 15.9 SEC (10.2-12.9)
[2017-03-18 12:42] LABS: PTT 32.8 SEC (25-37)
[2017-03-18 12:43] LABS: CHLORIDE 102 mEq/L (99-109); POTASSIUM 3.4 mEq/L (3.7-5.4); SODIUM 142 mEq/L (136-147)
[2017-03-18 12:45] LABS: GLUCOSE 91 mg/dL (70-99)
[2017-03-18 12:46] LABS: ANION GAP 10 MEQ/L (2-14)
[2017-03-18 12:48] LABS: GFR ESTIMATE (CALCULATED) > 59 mL/min/
[2017-03-18 12:49] LABS: UREA NITROGEN (BUN) 12 mg/dL (9-23)
[2017-03-18 12:55] LABS: TROP-I INTERPRETATION NEGATIVE; TROPONIN-I < 0.01 ng/mL (0.0-0.30)
[2017-03-18] MEDS ORDERED: DIAZEPAM5 MG PO (15:55)
[2017-03-18 16:44] VITALS: BP 138/65
[2017-03-18 18:47] LABS: TROP-I INTERPRETATION NEGATIVE; TROPONIN-I 0.01 ng/mL (0.0-0.30)
[2017-03-18 19:14] VITALS: BP 127/65
[2017-03-19 00:49] VITALS: BP 103/59
[2017-03-19 01:22] LABS: TROP-I INTERPRETATION NEGATIVE; TROPONIN-I < 0.01 ng/mL (0.0-0.30)
[2017-03-19 03:45] VITALS: BP 117/69
[2017-03-19 06:57] LABS: EOSINOPHIL (%) 3.4 % (0-5); EOSINOPHIL COUNT 0.2 K/uL (0-0.3); HEMATOCRIT 35.9 % (36.0-46.0); IMMATURE GRANULOCYTE (%) 0.4 % (0.0-0.7); INSTRUMENT ABS NEUTROPHIL CT 2.7 K/uL; MCH 29.5 PG (29.0-34.0); MCHC 31.8 G/DL (30.0-36.0); MCV 92.8 FL (83-99); MEAN PLAT.VOLUME 10.3 uM^3 (9.5-12.4); MONOCYTE (%) 8.1 % (3-12); MONOCYTE COUNT 0.4 K/uL (0-0.8); NEUTROPHIL (%) 50.8 % (45-76); NEUTROPHIL COUNT 2.7 K/uL (1.8-6.4); PLATELET COUNT 189 K/uL (156-360); RBC DIS.WIDTH-CV 13.4 % (11.8-14.6); RED BLOOD COUNT 3.87 M/uL (3.80-5.20); WHITE BLOOD COUNT 5.3 K/uL (4.1-10.2)
[2017-03-19 07:19] VITALS: BP 105/73
[2017-03-19 07:37] LABS: ANION GAP 9 MEQ/L (2-14); CHLORIDE 103 MEQ/L (99-109); GFR ESTIMATE (CALCULATED) > 59 mL/min/; GLUCOSE 91 mg/dL (70-99); MAGNESIUM 1.8 mg/dl (1.3-2.7); POTASSIUM 3.8 MEQ/L (3.7-5.4); SAMPLE HEMOLYSIS CHECK 0; SAMPLE ICTERIC CHECK 0; SAMPLE LIPEMIA CHECK 0; SODIUM 144 MEQ/L (136-147); UREA NITROGEN (BUN) 12 mg/dL (9-23)
[2017-03-19] MEDS ORDERED: AUGMENTIN875 MG PO (12:03)
== END 2017-03-19 14:08 | disposition home or self-care (01) ==
LOC: EME 11:24 → EDOF 15:24 → 5WEST 15:24 → EDOF 15:24 → ENRESERV 15:26 → 5WEST 16:39
PROVIDERS: Emergency Medicine; Internal Medicine; Physician Assistant
DX: R07.9 Chest pain, unspecified (principal); J18.9 Pneumonia, unspecified organism; I48.0 Paroxysmal atrial fibrillation; I11.0 Hypertensive heart disease with heart failure; I50.32 Chronic diastolic (congestive) heart failure; F32.9 Major depressive disorder, single episode, unspecified; E66.01 Morbid (severe) obesity due to excess calories; E78.5 Hyperlipidemia, unspecified; F41.9 Anxiety disorder, unspecified; J45.909 Unspecified asthma, uncomplicated; Z86.718 Personal history of other venous thrombosis and embolism; E03.9 Hypothyroidism, unspecified; Z87.11 Personal history of peptic ulcer disease; Z90.49 Acquired absence of other specified parts of digestive tract; Z82.49 Family history of ischemic heart disease and other diseases of the circulatory system; Z88.2 Allergy status to sulfonamides; Z88.7 Allergy status to serum and vaccine; Z88.5 Allergy status to narcotic agent; Z88.8 Allergy status to other drugs, medicaments and biological substances; Z79.82 Long term (current) use of aspirin; Z79.01 Long term (current) use of anticoagulants
CPT/HCPCS: 71010; 80048; 83735; 84484; 85025; 85610; 85730; 87040; 93005; 99202; 99281; 99285; G0378; J0456; J0696; J7050

== ENCOUNTER 2017-03-22 11:27 | Observation (INO) | payer OTHER ==
[~2017-03-22] VITALS: Ht 162.6 cm; Wt 143.4 kg
[~2017-03-22 11:27] MED LIST changes: +AUGMENTIN875 MG PO; +DIAZEPAM5 MG PO
[2017-03-22 12:13] LABS: EOSINOPHIL (%) 2.7 % (0-5); EOSINOPHIL COUNT 0.1 K/uL (0-0.3); HEMATOCRIT 36.3 % (36.0-46.0); IMMATURE GRANULOCYTE (%) 0.4 % (0.0-0.7); INSTRUMENT ABS NEUTROPHIL CT 3.4 K/uL; LYMPHOCYTE COUNT 0.8 K/uL (1.0-2.8); MCH 29.2 PG (29.0-34.0); MCHC 31.7 G/DL (30.0-36.0); MCV 92.1 FL (83-99); MEAN PLAT.VOLUME 10.3 uM^3 (9.5-12.4); MONOCYTE (%) 9.9 % (3-12); MONOCYTE COUNT 0.5 K/uL (0-0.8); NEUTROPHIL (%) 70.1 % (45-76); NEUTROPHIL COUNT 3.4 K/uL (1.8-6.4); PLATELET COUNT 188 K/uL (156-360); RBC DIS.WIDTH-CV 13.3 % (11.8-14.6); RBC DIS.WIDTH-SD 45.4 % (39-53); RED BLOOD COUNT 3.94 M/uL (3.80-5.20); WHITE BLOOD COUNT 4.9 K/uL (4.1-10.2)
[2017-03-22 12:24] LABS: CHLORIDE 102 mEq/L (99-109); POTASSIUM 4.1 mEq/L (3.7-5.4); SODIUM 142 mEq/L (136-147)
[2017-03-22 12:25] LABS: GLUCOSE 104 mg/dL (70-99)
[2017-03-22 12:27] LABS: ANION GAP 9 MEQ/L (2-14)
[2017-03-22 12:29] LABS: GFR ESTIMATE (CALCULATED) > 59 mL/min/
[2017-03-22 12:30] LABS: UREA NITROGEN (BUN) 13 mg/dL (9-23)
[2017-03-22] MEDS ORDERED: PROBIOTIC1 EAC7 PO (15:22)
[2017-03-22] MEDS ORDERED: XARELTO20 MG PO (15:22)
[2017-03-22] MEDS ORDERED: ENDOCET 5-3251 EACH PO (15:29)
[2017-03-22] MEDS ORDERED: AUGMENTIN875 MG PO ×2 (15:30→15:35)
[2017-03-22 20:13] VITALS: BP 129/89
[2017-03-22 23:44] VITALS: BP 119/58
[2017-03-23 04:11] VITALS: BP 104/64
[2017-03-23 07:12] LABS: HEMATOCRIT 35.1 % (36.0-46.0); MCH 29.3 PG (29.0-34.0); MCHC 31.3 G/DL (30.0-36.0); MCV 93.6 FL (83-99); MEAN PLAT.VOLUME 10.4 uM^3 (9.5-12.4); PLATELET COUNT 179 K/uL (156-360); RBC DIS.WIDTH-CV 13.7 % (11.8-14.6); RBC DIS.WIDTH-SD 46.6 % (39-53); RED BLOOD COUNT 3.75 M/uL (3.80-5.20)
[2017-03-23 07:37] LABS: ANION GAP 8 MEQ/L (2-14); CHLORIDE 105 MEQ/L (99-109); GFR ESTIMATE (CALCULATED) > 59 mL/min/; GLUCOSE 84 mg/dL (70-99); POTASSIUM 3.8 MEQ/L (3.7-5.4); SAMPLE HEMOLYSIS CHECK 0; SAMPLE ICTERIC CHECK 0; SAMPLE LIPEMIA CHECK 0; SODIUM 143 MEQ/L (136-147); UREA NITROGEN (BUN) 9 mg/dL (9-23)
[2017-03-23 07:45] VITALS: BP 123/69
[2017-03-23 12:30] VITALS: BP 121/65
[2017-03-23 15:58] VITALS: BP 126/74
== END 2017-03-23 18:17 | disposition home or self-care (01) ==
LOC: EME 11:27 → EDOF 17:41 → ENRESERV 17:46 → 5WEST 19:48
PROVIDERS: Emergency Medicine; Hospitalist
DX: R42 Dizziness and giddiness (principal); R09.02 Hypoxemia; J18.9 Pneumonia, unspecified organism; I48.0 Paroxysmal atrial fibrillation; I11.0 Hypertensive heart disease with heart failure; I50.32 Chronic diastolic (congestive) heart failure; E66.01 Morbid (severe) obesity due to excess calories; Z68.43 Body mass index [BMI] 50.0-59.9, adult; Z86.718 Personal history of other venous thrombosis and embolism; E78.5 Hyperlipidemia, unspecified; J45.909 Unspecified asthma, uncomplicated; E03.9 Hypothyroidism, unspecified; M19.90 Unspecified osteoarthritis, unspecified site; F41.9 Anxiety disorder, unspecified; Z88.2 Allergy status to sulfonamides; Z88.1 Allergy status to other antibiotic agents; Z88.7 Allergy status to serum and vaccine; Z88.8 Allergy status to other drugs, medicaments and biological substances
CPT/HCPCS: 71010; 71275; 80048; 80164; 83605; 85025; 85027; 87040; 94640; 99202; 99281; 99285; G0378; G8978 GP CK; G8979 GP CI; J7030

== ENCOUNTER 2017-03-29 18:56 | Emergency (ER) | payer OTHER ==
[~2017-03-29] VITALS: Ht 162.6 cm; Wt 137.7 kg
[~2017-03-29 18:56] MED LIST changes: +PROBIOTIC1 EAC7 PO
[2017-03-29 19:23] LABS: EOSINOPHIL (%) 2.7 % (0-5); EOSINOPHIL COUNT 0.1 K/uL (0-0.3); IMMATURE GRANULOCYTE (%) 0.4 % (0.0-0.7); INSTRUMENT ABS NEUTROPHIL CT 2.9 K/uL; LYMPHOCYTE COUNT 1.6 K/uL (1.0-2.8); MCH 28.8 PG (29.0-34.0); MCHC 31.6 G/DL (30.0-36.0); MCV 91.1 FL (83-99); MEAN PLAT.VOLUME 9.7 uM^3 (9.5-12.4); MONOCYTE (%) 10.6 % (3-12); MONOCYTE COUNT 0.6 K/uL (0-0.8); NEUTROPHIL (%) 56.1 % (45-76); NEUTROPHIL COUNT 2.9 K/uL (1.8-6.4); RBC DIS.WIDTH-CV 13.4 % (11.8-14.6); RBC DIS.WIDTH-SD 45.2 % (39-53); RED BLOOD COUNT 4.06 M/uL (3.80-5.20); WHITE BLOOD COUNT 5.2 K/uL (4.1-10.2)
[2017-03-29 19:24] LABS: PLATELET COUNT 236 K/uL (156-360)
[2017-03-29 19:28] LABS: CHLORIDE 102 mEq/L (99-109); POTASSIUM 3.9 mEq/L (3.7-5.4); SODIUM 142 mEq/L (136-147)
[2017-03-29 19:31] LABS: GLUCOSE 90 mg/dL (70-99)
[2017-03-29 19:32] LABS: ANION GAP 9 MEQ/L (2-14)
[2017-03-29 19:33] LABS: TOTAL BILIRUBIN 0.6 mg/dL (0.0-1.0)
[2017-03-29 19:34] LABS: ALKALINE PHOSPHATASE 133 IU/L (3-129); GFR ESTIMATE (CALCULATED) > 59 mL/min/
[2017-03-29 19:35] LABS: UREA NITROGEN (BUN) 12 mg/dL (9-23)
[2017-03-29 19:38] LABS: LIPASE 15 U/L (1.0-51.0)
[2017-03-29 22:32] LABS: ADD MIUA? YES; BILIRUBIN NEGATIVE; BLOOD NEGATIVE; COLOR YELLOW ((YELLOW)); GLUCOSE (STRIP) NEGATIVE; KETONES NEGATIVE; LEUKOCYTES NEGATIVE; NITRITE NEGATIVE; PROTEIN (STRIP) NEGATIVE; SPECIFIC GRAVITY 1.045 (1.000-1.030); UROBILINOGEN 0.2 MG/DL (0.2-1.0)
[2017-03-29 22:35] LABS: BACTERIA NONE SEEN /HPF; EPITHELIAL CELLS 1+ /HPF; MUCUS TRACE /LPF; RED BLOOD CELLS 0-5 /HPF (0-5); UCUL ADDED? NO; WHITE BLOOD CELLS 0-5 /HPF (0-5)
[2017-03-29 23:16] VITALS: BP 134/88
== END 2017-03-30 00:09 | disposition home or self-care (01) ==
LOC: EME 18:56
PROVIDERS: Emergency Medicine
DX: R10.30 Lower abdominal pain, unspecified (principal); R11.0 Nausea; M48.56XA Collapsed vertebra, not elsewhere classified, lumbar region, initial encounter for fracture; K76.0 Fatty (change of) liver, not elsewhere classified; Z90.49 Acquired absence of other specified parts of digestive tract; Z90.710 Acquired absence of both cervix and uterus; J45.909 Unspecified asthma, uncomplicated; E78.5 Hyperlipidemia, unspecified; Z86.718 Personal history of other venous thrombosis and embolism; Z79.01 Long term (current) use of anticoagulants
CPT/HCPCS: 74177; 80053; 81003; 83605; 83690; 85025; 99281; 99285; J2405; J7030

== ENCOUNTER 2017-04-09 01:38 | Emergency (ER) | payer OTHER ==
[~2017-04-09] VITALS: Ht 162.6 cm; Wt 135.4 kg
[2017-04-09 05:19] LABS: CHLORIDE 103 mEq/L (99-109); POTASSIUM 3.7 mEq/L (3.7-5.4); SODIUM 142 mEq/L (136-147)
[2017-04-09 05:20] LABS: GLUCOSE 95 mg/dL (70-99)
[2017-04-09 05:22] LABS: ANION GAP 10 MEQ/L (2-14)
[2017-04-09 05:24] LABS: GFR ESTIMATE (CALCULATED) > 59 mL/min/
[2017-04-09 05:25] LABS: UREA NITROGEN (BUN) 21 mg/dL (9-23)
[2017-04-09 05:27] LABS: CREATINE KINASE 38 IU/L (1-294); TOTAL CK 38 IU/L (1-294)
[2017-04-09 05:37] LABS: HEMATOCRIT 37.5 % (36.0-46.0); MCH 28.7 PG (29.0-34.0); MCHC 31.2 G/DL (30.0-36.0); MCV 91.9 FL (83-99); MEAN PLAT.VOLUME 10.8 uM^3 (9.5-12.4); PLATELET COUNT 187 K/uL (156-360); RBC DIS.WIDTH-CV 13.8 % (11.8-14.6); RBC DIS.WIDTH-SD 46.5 % (39-53); RED BLOOD COUNT 4.08 M/uL (3.80-5.20); WHITE BLOOD COUNT 5.9 K/uL (4.1-10.2)
[2017-04-09 05:57] VITALS: BP 103/68
== END 2017-04-09 06:09 | disposition home or self-care (01) ==
LOC: EME 01:38
PROVIDERS: Emergency Medicine
DX: M79.604 Pain in right leg (principal); M79.605 Pain in left leg; G89.29 Other chronic pain; R60.0 Localized edema; Z79.01 Long term (current) use of anticoagulants
CPT/HCPCS: 80048; 82550; 82553; 85027; 99281; 99284

== ENCOUNTER 2017-04-11 18:07 | Emergency (ER) | payer OTHER ==
[~2017-04-11] VITALS: Ht 162.6 cm; Wt 130.3 kg
[2017-04-11 19:46] LABS: EOSINOPHIL (%) 2.1 % (0-5); EOSINOPHIL COUNT 0.1 K/uL (0-0.3); HEMATOCRIT 39.3 % (36.0-46.0); IMMATURE GRANULOCYTE (%) 0.3 % (0.0-0.7); INSTRUMENT ABS NEUTROPHIL CT 3.5 K/uL; LYMPHOCYTE COUNT 1.6 K/uL (1.0-2.8); MCH 28.6 PG (29.0-34.0); MCHC 31.8 G/DL (30.0-36.0); MCV 89.9 FL (83-99); MEAN PLAT.VOLUME 11.4 uM^3 (9.5-12.4); MONOCYTE (%) 10.8 % (3-12); MONOCYTE COUNT 0.6 K/uL (0-0.8); NEUTROPHIL (%) 59.4 % (45-76); NEUTROPHIL COUNT 3.5 K/uL (1.8-6.4); PLATELET COUNT 182 K/uL (156-360); RBC DIS.WIDTH-CV 13.5 % (11.8-14.6); RBC DIS.WIDTH-SD 44.5 % (39-53); RED BLOOD COUNT 4.37 M/uL (3.80-5.20); WHITE BLOOD COUNT 5.8 K/uL (4.1-10.2)
[2017-04-11 19:59] LABS: CHLORIDE 101 mEq/L (99-109); POTASSIUM 4.1 mEq/L (3.7-5.4); SODIUM 144 mEq/L (136-147)
[2017-04-11 20:01] LABS: GLUCOSE 76 mg/dL (70-99)
[2017-04-11 20:03] LABS: ANION GAP 15 MEQ/L (2-14)
[2017-04-11 20:04] LABS: SERUM ETHYL ALCOHOL < 10 mg/dL
[2017-04-11 20:05] LABS: GFR ESTIMATE (CALCULATED) > 59 mL/min/
[2017-04-11 20:07] LABS: UREA NITROGEN (BUN) 11 mg/dL (9-23)
[2017-04-11 20:08] LABS: SALICYLATE < 5.0 MG/DL (15-30)
[2017-04-11 20:09] LABS: TROP-I INTERPRETATION NEGATIVE; TROPONIN-I < 0.01 ng/mL (0.0-0.30)
[2017-04-11 21:15] LABS: TROP-I INTERPRETATION NEGATIVE; TROPONIN-I < 0.01 ng/mL (0.0-0.30)
[2017-04-11 22:16] VITALS: BP 138/87
== END 2017-04-11 22:17 | disposition home or self-care (01) ==
LOC: EME 18:07
PROVIDERS: Emergency Medicine
DX: F33.1 Major depressive disorder, recurrent, moderate (principal); R07.9 Chest pain, unspecified; E78.5 Hyperlipidemia, unspecified; Z86.718 Personal history of other venous thrombosis and embolism; J45.909 Unspecified asthma, uncomplicated; K21.9 Gastro-esophageal reflux disease without esophagitis; Z88.7 Allergy status to serum and vaccine; Z88.2 Allergy status to sulfonamides; Z88.5 Allergy status to narcotic agent
CPT/HCPCS: 71020; 80048; 84484; 85025; 90839; 93005; 99281; 99284; G0480; J7040

== ENCOUNTER 2017-04-18 20:00 | Emergency (ER) | payer OTHER ==
[~2017-04-18] VITALS: Ht 162.6 cm; Wt 123.4 kg
[2017-04-18 21:14] LABS: ANION GAP 8 MEQ/L (2-14); CHLORIDE 101 MEQ/L (99-109); GFR ESTIMATE (CALCULATED) > 59 mL/min/; GLUCOSE 77 mg/dL (70-99); POTASSIUM 3.8 MEQ/L (3.7-5.4); SAMPLE HEMOLYSIS CHECK 0; SAMPLE ICTERIC CHECK 0; SAMPLE LIPEMIA CHECK 0; SODIUM 142 MEQ/L (136-147); UREA NITROGEN (BUN) 17 mg/dL (9-23)
[2017-04-18 21:19] LABS: TROP-I INTERPRETATION NEGATIVE; TROPONIN-I < 0.01 ng/mL (0.0-0.30)
[2017-04-18 21:31] LABS: HEMATOCRIT 38.6 % (36.0-46.0); MCHC 32.4 G/DL (30.0-36.0); MCV 89.6 FL (83-99); MEAN PLAT.VOLUME 11.8 uM^3 (9.5-12.4); PLATELET COUNT 168 K/uL (156-360); RBC DIS.WIDTH-CV 13.9 % (11.8-14.6); RBC DIS.WIDTH-SD 45.5 % (39-53); RED BLOOD COUNT 4.31 M/uL (3.80-5.20); WHITE BLOOD COUNT 5.1 K/uL (4.1-10.2)
[2017-04-18 23:35] LABS: TROP-I INTERPRETATION NEGATIVE; TROPONIN-I < 0.01 ng/mL (0.0-0.30)
[2017-04-19 00:29] VITALS: BP 115/83
== END 2017-04-19 01:13 | disposition home or self-care (01) ==
LOC: EME → EDBD 20:00 → EME 20:00
PROVIDERS: Emergency Medicine
DX: R07.89 Other chest pain (principal); I48.91 Unspecified atrial fibrillation; I50.9 Heart failure, unspecified; J45.909 Unspecified asthma, uncomplicated; E78.5 Hyperlipidemia, unspecified; K21.9 Gastro-esophageal reflux disease without esophagitis; F41.9 Anxiety disorder, unspecified; F32.9 Major depressive disorder, single episode, unspecified; Z79.01 Long term (current) use of anticoagulants
CPT/HCPCS: 71020; 80048; 84484; 85027; 93005; 99281; 99285; C9113

== ENCOUNTER 2017-04-26 19:22 | Emergency (ER) | payer OTHER ==
[~2017-04-26] VITALS: Ht 162.6 cm; Wt 132.7 kg
[2017-04-26 20:25] LABS: EOSINOPHIL (%) 2.5 % (0-5); EOSINOPHIL COUNT 0.1 K/uL (0-0.3); HEMATOCRIT 39.6 % (36.0-46.0); IMMATURE GRANULOCYTE (%) 0.2 % (0.0-0.7); INSTRUMENT ABS NEUTROPHIL CT 2.9 K/uL; MCH 28.8 PG (29.0-34.0); MCHC 31.8 G/DL (30.0-36.0); MCV 90.6 FL (83-99); MEAN PLAT.VOLUME 10.6 uM^3 (9.5-12.4); MONOCYTE (%) 8.2 % (3-12); MONOCYTE COUNT 0.5 K/uL (0-0.8); NEUTROPHIL (%) 52.8 % (45-76); NEUTROPHIL COUNT 2.9 K/uL (1.8-6.4); PLATELET COUNT 158 K/uL (156-360); RBC DIS.WIDTH-SD 46.8 % (39-53); RED BLOOD COUNT 4.37 M/uL (3.80-5.20); WHITE BLOOD COUNT 5.5 K/uL (4.1-10.2)
[2017-04-26 20:36] LABS: CHLORIDE 102 mEq/L (99-109); POTASSIUM 4.3 mEq/L (3.7-5.4); SODIUM 140 mEq/L (136-147)
[2017-04-26 20:38] LABS: GLUCOSE 80 mg/dL (70-99)
[2017-04-26 20:40] LABS: ANION GAP 9 MEQ/L (2-14); TOTAL BILIRUBIN 0.5 mg/dL (0.0-1.0)
[2017-04-26 21:17] LABS: ALKALINE PHOSPHATASE 87 IU/L (3-129); GFR ESTIMATE (CALCULATED) > 59 mL/min/; UREA NITROGEN (BUN) 15 mg/dL (9-23)
[2017-04-27 00:30] VITALS: BP 128/75
== END 2017-04-27 00:57 | disposition home or self-care (01) ==
LOC: EME 19:22
PROVIDERS: Emergency Medicine
DX: R10.31 Right lower quadrant pain (principal); I50.9 Heart failure, unspecified; J45.909 Unspecified asthma, uncomplicated; E78.5 Hyperlipidemia, unspecified; K21.9 Gastro-esophageal reflux disease without esophagitis; F32.9 Major depressive disorder, single episode, unspecified; F41.9 Anxiety disorder, unspecified; Z86.718 Personal history of other venous thrombosis and embolism; Z90.49 Acquired absence of other specified parts of digestive tract; Z90.710 Acquired absence of both cervix and uterus
CPT/HCPCS: 74177; 80053; 81003; 85025; 99281; 99285; J1885; J7030

== ENCOUNTER 2017-04-29 15:25 | Emergency (ER) | payer OTHER ==
[~2017-04-29] VITALS: Ht 162.6 cm; Wt 131.8 kg
[2017-04-29 16:44] LABS: HEMATOCRIT 40.5 % (36.0-46.0); MCHC 32.3 G/DL (30.0-36.0); MCV 89.8 FL (83-99); MEAN PLAT.VOLUME 10.6 uM^3 (9.5-12.4); PLATELET COUNT 170 K/uL (156-360); RBC DIS.WIDTH-CV 14.2 % (11.8-14.6); RBC DIS.WIDTH-SD 46.7 % (39-53); RED BLOOD COUNT 4.51 M/uL (3.80-5.20); WHITE BLOOD COUNT 5.8 K/uL (4.1-10.2)
[2017-04-29 16:56] LABS: CHLORIDE 105 mEq/L (99-109); POTASSIUM 3.7 mEq/L (3.7-5.4); SODIUM 142 mEq/L (136-147)
[2017-04-29 16:57] LABS: GLUCOSE 96 mg/dL (70-99)
[2017-04-29 16:59] LABS: ANION GAP 8 MEQ/L (2-14)
[2017-04-29 17:01] LABS: GFR ESTIMATE (CALCULATED) > 59 mL/min/
[2017-04-29 17:02] LABS: UREA NITROGEN (BUN) 11 mg/dL (9-23)
[2017-04-29 17:04] LABS: TROP-I INTERPRETATION NEGATIVE; TROPONIN-I < 0.01 ng/mL (0.0-0.30)
[2017-04-29 20:19] LABS: BACTERIA 2+ /HPF; CASTS NONE SEEN /LPF; CRYSTALS NONE SEEN; EPITHELIAL CELLS 1+ /HPF; MUCUS 1+ /LPF; RED BLOOD CELLS 0-5 /HPF (0-5); WHITE BLOOD CELLS 0-5 /HPF (0-5)
[2017-04-29 21:43] VITALS: BP 120/94
== END 2017-04-29 21:39 | disposition home or self-care (01) ==
LOC: EME 15:25
PROVIDERS: Emergency Medicine
DX: S00.03XA Contusion of scalp, initial encounter (principal); W18.39XA Other fall on same level, initial encounter; Y93.01 Activity, walking, marching and hiking; R42 Dizziness and giddiness; I50.9 Heart failure, unspecified; I48.91 Unspecified atrial fibrillation; Z86.718 Personal history of other venous thrombosis and embolism; Z79.01 Long term (current) use of anticoagulants
CPT/HCPCS: 70450; 71010; 80048; 81003; 81015; 84484; 85027; 87086; 93005; 99281; 99285; J7040

== ENCOUNTER 2017-05-03 18:32 | Emergency (ER) | payer OTHER ==
[~2017-05-03] VITALS: Ht 162.6 cm; Wt 127.9 kg
[2017-05-03 19:31] LABS: EOSINOPHIL (%) 2.2 % (0-5); EOSINOPHIL COUNT 0.1 K/uL (0-0.3); HEMATOCRIT 41.1 % (36.0-46.0); IMMATURE GRANULOCYTE (%) 0.5 % (0.0-0.7); INSTRUMENT ABS NEUTROPHIL CT 3.4 K/uL; LYMPHOCYTE COUNT 1.8 K/uL (1.0-2.8); MCH 28.8 PG (29.0-34.0); MCHC 31.9 G/DL (30.0-36.0); MCV 90.3 FL (83-99); MONOCYTE (%) 7.8 % (3-12); MONOCYTE COUNT 0.5 K/uL (0-0.8); NEUTROPHIL (%) 58.4 % (45-76); NEUTROPHIL COUNT 3.4 K/uL (1.8-6.4); PLATELET COUNT 174 K/uL (156-360); RBC DIS.WIDTH-SD 46.2 % (39-53); RED BLOOD COUNT 4.55 M/uL (3.80-5.20); WHITE BLOOD COUNT 5.8 K/uL (4.1-10.2)
[2017-05-03 19:38] LABS: CHLORIDE 100 mEq/L (99-109); POTASSIUM 4.1 mEq/L (3.7-5.4); SODIUM 142 mEq/L (136-147)
[2017-05-03 19:40] LABS: GLUCOSE 81 mg/dL (70-99)
[2017-05-03 19:41] LABS: ANION GAP 12 MEQ/L (2-14)
[2017-05-03 19:42] LABS: TOTAL BILIRUBIN 0.5 mg/dL (0.0-1.0)
[2017-05-03 19:44] LABS: ALKALINE PHOSPHATASE 100 IU/L (3-129); GFR ESTIMATE (CALCULATED) > 59 mL/min/
[2017-05-03 19:45] LABS: UREA NITROGEN (BUN) 15 mg/dL (9-23)
[2017-05-03] MEDS ORDERED: FIORICET 50-301 EAC1 PO (22:33)
[2017-05-03 22:54] VITALS: BP 132/79
== END 2017-05-03 23:08 | disposition home or self-care (01) ==
LOC: EME 18:32
PROVIDERS: Emergency Medicine
DX: R51 Headache (principal); K21.9 Gastro-esophageal reflux disease without esophagitis; E78.5 Hyperlipidemia, unspecified; J45.909 Unspecified asthma, uncomplicated; F41.9 Anxiety disorder, unspecified; F32.9 Major depressive disorder, single episode, unspecified; Z86.718 Personal history of other venous thrombosis and embolism; Z88.8 Allergy status to other drugs, medicaments and biological substances
CPT/HCPCS: 80053; 85025; 93005; 99281; 99285; J1885; J2765; J7030

== ENCOUNTER 2017-05-09 19:09 | Observation (INO) | payer OTHER ==
[~2017-05-09] VITALS: Ht 162.6 cm; Wt 128.8 kg
[~2017-05-09 19:09] MED LIST changes: +FIORICET 50-301 EAC1 PO
[2017-05-09 20:06] LABS: EOSINOPHIL (%) 2.2 % (0-5); EOSINOPHIL COUNT 0.1 K/uL (0-0.3); HEMATOCRIT 38.6 % (36.0-46.0); IMMATURE GRANULOCYTE (%) 0.2 % (0.0-0.7); INSTRUMENT ABS NEUTROPHIL CT 3.5 K/uL; LYMPHOCYTE COUNT 1.9 K/uL (1.0-2.8); MCH 28.8 PG (29.0-34.0); MCHC 31.6 G/DL (30.0-36.0); MEAN PLAT.VOLUME 10.7 uM^3 (9.5-12.4); MONOCYTE COUNT 0.4 K/uL (0-0.8); NEUTROPHIL (%) 58.6 % (45-76); NEUTROPHIL COUNT 3.5 K/uL (1.8-6.4); PLATELET COUNT 166 K/uL (156-360); RBC DIS.WIDTH-CV 14.4 % (11.8-14.6); RBC DIS.WIDTH-SD 47.8 % (39-53); RED BLOOD COUNT 4.24 M/uL (3.80-5.20)
[2017-05-09 20:14] LABS: INTER. NORMALIZED RATIO 1.3; PROTHROMBIN TIME 14.3 SEC (10.2-12.9)
[2017-05-09 20:16] LABS: CHLORIDE 103 mEq/L (99-109); PTT 36.1 SEC (25-37); SODIUM 143 mEq/L (136-147)
[2017-05-09 20:19] LABS: GLUCOSE 84 mg/dL (70-99)
[2017-05-09 20:20] LABS: ANION GAP 10 MEQ/L (2-14)
[2017-05-09 20:21] LABS: TOTAL BILIRUBIN 0.5 mg/dL (0.0-1.0)
[2017-05-09 20:22] LABS: ALKALINE PHOSPHATASE 92 IU/L (3-129); GFR ESTIMATE (CALCULATED) > 59 mL/min/
[2017-05-09 20:23] LABS: UREA NITROGEN (BUN) 20 mg/dL (9-23)
[2017-05-09 20:31] LABS: TROP-I INTERPRETATION NEGATIVE; TROPONIN-I 0.02 ng/mL (0.0-0.30)
[2017-05-09] MEDS ORDERED: VENLAFAXINE HC150 M1 PO (21:58)
[2017-05-09] MEDS ORDERED: MONTELUKAST SOD10 MG PO (21:59)
[2017-05-09] MEDS ORDERED: CALAN80 MG PO (21:59)
[2017-05-09] MEDS ORDERED: ASMANEX TW200 MICRO1 IH (22:00)
[2017-05-09] MEDS ORDERED: CLARITIN,ALAVAR10 MG PO (22:00)
[2017-05-09] MEDS ORDERED: VENTOLIN HFA18 GM IH (22:02)
[2017-05-09] MEDS ORDERED: VOLTAREN 1% GE100 GM TP (22:04)
[2017-05-09] MEDS ORDERED: PANTOPRAZOLE SO40 MG PO (22:05)
[2017-05-09] MEDS ORDERED: CALCIUM + VITA1 EAC2 PO (22:07)
[2017-05-09 22:09] LABS: Estimated Average Glucose 103 mg/dL (70-123); HEMOGLOBIN A1c (GLYCOHEMOGLOB) 5.2 % HGB (Below 5.7)
[2017-05-09 22:10] LABS: HDL CHOLESTEROL 47 MG/DL (Desirable>=50); LDL CHOLESTEROL 37 mg/dL (Desirable<100); NON-HDL CHOLESTEROL 55 mg/dL (Desirable<160); SAMPLE HEMOLYSIS CHECK 0; SAMPLE ICTERIC CHECK 0; SAMPLE LIPEMIA CHECK 0; TOTAL CHOLESTEROL 102 mg/dL (Desirable<200); TRIGLYCERIDES 90 MG/DL (Normal: <150)
[2017-05-09] MEDS ORDERED: FUROSEMIDE40 MG PO (22:10)
[2017-05-09] MEDS ORDERED: XARELTO20 MG PO (22:13)
[2017-05-09] MEDS ORDERED: PROBIOTIC GUMMIES PO (22:13)
[2017-05-09] MEDS ORDERED: LEVOTHYROXINE75 MCG PO (22:19)
[2017-05-09] MEDS ORDERED: SYNTHROID75 MCG PO (22:25)
[2017-05-09] MEDS ORDERED: MULTI-VITAMIN1 EAC3 PO (22:26)
[2017-05-09] MEDS ORDERED: POTASSIUM CHLO20 ME1 PO (22:28)
[2017-05-09] MEDS ORDERED: DIVALPROEX SOD500 M1 PO (22:28)
[2017-05-09] MEDS ORDERED: ATORVASTATIN CA10 MG PO (22:29)
[2017-05-09] MEDS ORDERED: MYRBETRIQ25 MG PO (22:30)
[2017-05-09] MEDS ORDERED: ARIPIPRAZOLE2 MG PO (22:30)
[2017-05-09] MEDS ORDERED: TRAMADOL HCL50 MG PO (22:31)
[2017-05-09] MEDS ORDERED: FLEXERIL5 MG PO (22:32)
[2017-05-09 22:33] VITALS: BP 135/69
[2017-05-09] MEDS ORDERED: DIAZEPAM5 MG PO (22:33)
[2017-05-09] MEDS ORDERED: TYLENOL EXTRA500 MG PO (22:34)
[2017-05-09] MEDS ORDERED: REFRESH OPTIVE10 ML BOTH EYES (22:35)
[2017-05-10] VITALS (7 sets, daily range): BP systolic 118–144; BP diastolic 59–74
[2017-05-10 06:26] LABS: HEMATOCRIT 35.4 % (36.0-46.0); MCH 28.5 PG (29.0-34.0); MCHC 31.4 G/DL (30.0-36.0); MCV 90.8 FL (83-99); MEAN PLAT.VOLUME 10.5 uM^3 (9.5-12.4); PLATELET COUNT 148 K/uL (156-360); RBC DIS.WIDTH-CV 14.5 % (11.8-14.6); RBC DIS.WIDTH-SD 48.5 % (39-53); WHITE BLOOD COUNT 5.1 K/uL (4.1-10.2)
[2017-05-10 08:05] LABS: ADD MIUA? NO; BILIRUBIN NEGATIVE; BLOOD NEGATIVE; COLOR YELLOW ((YELLOW)); GLUCOSE (STRIP) NEGATIVE; KETONES NEGATIVE; LEUKOCYTES NEGATIVE; NITRITE NEGATIVE; PROTEIN (STRIP) NEGATIVE; SPECIFIC GRAVITY 1.014 (1.000-1.030); UROBILINOGEN 0.2 MG/DL (0.2-1.0)
[2017-05-10] MEDS ORDERED: ANTIVERT25 MG PO (16:14)
== END 2017-05-10 18:24 | disposition home or self-care (01) ==
LOC: EME → EDBD 19:09 → EME 19:09 → EDOF 21:07 → ENRESERV 21:09 → 5WEST 22:11
PROVIDERS: Emergency Medicine; Internal Medicine
DX: R42 Dizziness and giddiness (principal); R60.0 Localized edema; R51 Headache; F32.9 Major depressive disorder, single episode, unspecified; I48.91 Unspecified atrial fibrillation; I50.9 Heart failure, unspecified; S00.03XA Contusion of scalp, initial encounter; Z87.19 Personal history of other diseases of the digestive system; E78.5 Hyperlipidemia, unspecified; K21.9 Gastro-esophageal reflux disease without esophagitis; J45.909 Unspecified asthma, uncomplicated; Z86.718 Personal history of other venous thrombosis and embolism; Z90.49 Acquired absence of other specified parts of digestive tract; Z79.01 Long term (current) use of anticoagulants; Z77.22 Contact with and (suspected) exposure to environmental tobacco smoke (acute) (chronic); Z88.7 Allergy status to serum and vaccine; Z88.2 Allergy status to sulfonamides; Z88.8 Allergy status to other drugs, medicaments and biological substances; Z88.5 Allergy status to narcotic agent
CPT/HCPCS: 70450; 70551; 71010; 80053; 80061; 81003; 83036; 84484; 85025; 85027; 85610; 85730; 93005; 99281; 99285; G0378; J1885

== ENCOUNTER 2017-06-10 00:53 | Emergency (ER) | payer OTHER ==
[~2017-06-10] VITALS: Ht 162.6 cm; Wt 130.2 kg
[~2017-06-10 00:53] MED LIST changes: +ANTIVERT25 MG PO; +ARIPIPRAZOLE2 MG PO; +DIVALPROEX SOD500 M1 PO; +PANTOPRAZOLE SO40 MG PO; +ZOFRAN4 MG PO
[2017-06-10 01:28] LABS: EOSINOPHIL (%) 1.9 % (0-5); EOSINOPHIL COUNT 0.1 K/uL (0-0.3); HEMATOCRIT 39.4 % (36.0-46.0); IMMATURE GRANULOCYTE (%) 0.3 % (0.0-0.7); INSTRUMENT ABS NEUTROPHIL CT 3.5 K/uL; LYMPHOCYTE COUNT 2.1 K/uL (1.0-2.8); MCH 28.7 PG (29.0-34.0); MCHC 31.7 G/DL (30.0-36.0); MCV 90.4 FL (83-99); MEAN PLAT.VOLUME 10.8 uM^3 (9.5-12.4); MONOCYTE (%) 9.1 % (3-12); MONOCYTE COUNT 0.6 K/uL (0-0.8); NEUTROPHIL (%) 54.8 % (45-76); NEUTROPHIL COUNT 3.5 K/uL (1.8-6.4); PLATELET COUNT 158 K/uL (156-360); RBC DIS.WIDTH-CV 15.4 % (11.8-14.6); RBC DIS.WIDTH-SD 52.2 % (39-53); RED BLOOD COUNT 4.36 M/uL (3.80-5.20); WHITE BLOOD COUNT 6.4 K/uL (4.1-10.2)
[2017-06-10 01:37] LABS: CHLORIDE 103 mEq/L (99-109); POTASSIUM 3.9 mEq/L (3.7-5.4); SODIUM 140 mEq/L (136-147)
[2017-06-10 01:38] LABS: GLUCOSE 90 mg/dL (70-99)
[2017-06-10 01:40] LABS: ANION GAP 8 MEQ/L (2-14)
[2017-06-10 01:42] LABS: GFR ESTIMATE (CALCULATED) > 59 mL/min/
[2017-06-10 01:43] LABS: UREA NITROGEN (BUN) 24 mg/dL (9-23)
[2017-06-10 01:50] LABS: TROP-I INTERPRETATION NEGATIVE; TROPONIN-I < 0.01 ng/mL (0.0-0.30)
[2017-06-10 04:06] LABS: TROP-I INTERPRETATION NEGATIVE; TROPONIN-I < 0.01 ng/mL (0.0-0.30)
[2017-06-10 06:37] VITALS: BP 137/91
== END 2017-06-10 06:38 | disposition home or self-care (01) ==
LOC: EME 00:53
PROVIDERS: Emergency Medicine
DX: R07.9 Chest pain, unspecified (principal); I50.9 Heart failure, unspecified; I48.91 Unspecified atrial fibrillation; E78.5 Hyperlipidemia, unspecified; Z79.01 Long term (current) use of anticoagulants; J45.909 Unspecified asthma, uncomplicated; F32.9 Major depressive disorder, single episode, unspecified; K21.9 Gastro-esophageal reflux disease without esophagitis; F41.9 Anxiety disorder, unspecified; Z86.718 Personal history of other venous thrombosis and embolism; Z88.2 Allergy status to sulfonamides; Z88.7 Allergy status to serum and vaccine; Z88.5 Allergy status to narcotic agent
CPT/HCPCS: 71010; 80048; 83880; 84484; 85025; 93005; 99281; 99285

== ENCOUNTER 2017-07-04 19:20 | Emergency (ER) | payer OTHER ==
[~2017-07-04] VITALS: Ht 162.6 cm; Wt 128.6 kg
[2017-07-04 20:31] LABS: HEMATOCRIT 41.5 % (36.0-46.0); MCH 29.4 PG (29.0-34.0); MCHC 32.3 G/DL (30.0-36.0); MEAN PLAT.VOLUME 10.2 uM^3 (9.5-12.4); PLATELET COUNT 185 K/uL (156-360); RBC DIS.WIDTH-CV 15.8 % (11.8-14.6); RBC DIS.WIDTH-SD 52.7 % (39-53); RED BLOOD COUNT 4.56 M/uL (3.80-5.20); WHITE BLOOD COUNT 5.8 K/uL (4.1-10.2)
[2017-07-04 20:51] LABS: CHLORIDE 102 mEq/L (99-109); POTASSIUM 3.9 mEq/L (3.7-5.4); SODIUM 139 mEq/L (136-147)
[2017-07-04 20:53] LABS: GLUCOSE 89 mg/dL (70-99); TROP-I INTERPRETATION NEGATIVE; TROPONIN-I < 0.01 ng/mL (0.0-0.30)
[2017-07-04 20:54] LABS: ANION GAP 9 MEQ/L (2-14)
[2017-07-04 20:55] LABS: INTER. NORMALIZED RATIO 1.2; PROTHROMBIN TIME 14.1 SEC (10.2-12.9)
[2017-07-04 20:56] LABS: GFR ESTIMATE (CALCULATED) > 59 mL/min/
[2017-07-04 20:57] LABS: PTT 35.4 SEC (25-37); UREA NITROGEN (BUN) 22 mg/dL (9-23)
[2017-07-04 23:52] LABS: TROP-I INTERPRETATION NEGATIVE; TROPONIN-I < 0.01 ng/mL (0.0-0.30)
[2017-07-05 00:17] VITALS: BP 128/70
== END 2017-07-05 00:21 | disposition home or self-care (01) ==
LOC: EME 19:20 → RME 19:20
PROVIDERS: Physician Assistant
DX: R07.9 Chest pain, unspecified (principal); E78.5 Hyperlipidemia, unspecified; J45.909 Unspecified asthma, uncomplicated; I48.91 Unspecified atrial fibrillation; Z86.718 Personal history of other venous thrombosis and embolism; Z79.01 Long term (current) use of anticoagulants
CPT/HCPCS: 71020; 80048; 83880; 84484; 85027; 85610; 85730; 93005; 99281; 99285; Q0177

== ENCOUNTER 2017-07-15 01:18 | Emergency (ER) | payer OTHER ==
[~2017-07-15] VITALS: Ht 162.6 cm; Wt 127.5 kg
[2017-07-15 02:59] LABS: HEMATOCRIT 37.5 % (36.0-46.0); HEMOGLOBIN 12.3 G/DL (11.9-15.5); MCH 29.9 PG (29.0-34.0); MCHC 32.8 G/DL (30.0-36.0); MCV 91.2 FL (83-99); PLATELET COUNT 182 K/uL (156-360); RBC DIS.WIDTH-CV 15.4 % (11.8-14.6); RBC DIS.WIDTH-SD 51.5 % (39-53); RED BLOOD COUNT 4.11 M/uL (3.80-5.20); WHITE BLOOD COUNT 6.7 K/uL (4.1-10.2)
[2017-07-15 03:09] LABS: ALBUMIN 3.5 g/dL (3.2-4.8)
[2017-07-15 03:10] LABS: CHLORIDE 104 mEq/L (99-109); POTASSIUM 4.4 mEq/L (3.7-5.4); SODIUM 140 mEq/L (136-147)
[2017-07-15 03:12] LABS: GLUCOSE 96 mg/dL (70-99); TOTAL PROTEIN 6.6 g/dL (6.4-8.3)
[2017-07-15 03:14] LABS: TOTAL BILIRUBIN 0.4 mg/dL (0.0-1.0)
[2017-07-15 03:15] LABS: ALKALINE PHOSPHATASE 90 IU/L (3-129)
[2017-07-15 03:16] LABS: CREATININE 0.7 mg/dL (0.6-1.3); GFR ESTIMATE (CALCULATED) > 59 mL/min/
[2017-07-15 03:17] LABS: AST (GOT) 14 IU/L (2-34); UREA NITROGEN (BUN) 24 mg/dL (9-23)
[2017-07-15 03:19] LABS: ALT (GPT) 8 IU/L (3-49); LIPASE 19 U/L (1.0-51.0)
[2017-07-15 03:25] LABS: TROP-I INTERPRETATION NEGATIVE; TROPONIN-I < 0.01 ng/mL (0.0-0.30)
[2017-07-15 05:20] LABS: TROP-I INTERPRETATION NEGATIVE; TROPONIN-I < 0.01 ng/mL (0.0-0.30)
[2017-07-15 05:51] VITALS: BP 123/80
== END 2017-07-15 06:30 | disposition home or self-care (01) ==
LOC: EME 01:18
PROVIDERS: Emergency Medicine
DX: R07.9 Chest pain, unspecified (principal); I50.9 Heart failure, unspecified; I48.91 Unspecified atrial fibrillation; E78.5 Hyperlipidemia, unspecified; J45.909 Unspecified asthma, uncomplicated; K21.9 Gastro-esophageal reflux disease without esophagitis; F32.9 Major depressive disorder, single episode, unspecified; F41.9 Anxiety disorder, unspecified; Z88.2 Allergy status to sulfonamides; Z88.5 Allergy status to narcotic agent; Z88.6 Allergy status to analgesic agent
CPT/HCPCS: 71010; 80053; 83690; 84484; 85027; 93005; 99281; 99285

== ENCOUNTER 2017-07-31 21:09 | Emergency (ER) | payer OTHER ==
[~2017-07-31] VITALS: Ht 162.6 cm; Wt 130.8 kg
[2017-07-31 21:33] LABS: HEMATOCRIT 35.6 % (36.0-46.0); HEMOGLOBIN 11.7 G/DL (11.9-15.5); MCH 30.5 PG (29.0-34.0); MCHC 32.9 G/DL (30.0-36.0); MCV 92.7 FL (83-99); PLATELET COUNT 170 K/uL (156-360); RBC DIS.WIDTH-CV 14.7 % (11.8-14.6); RBC DIS.WIDTH-SD 49.8 % (39-53); RED BLOOD COUNT 3.84 M/uL (3.80-5.20); WHITE BLOOD COUNT 6.8 K/uL (4.1-10.2)
[2017-07-31 21:42] LABS: CHLORIDE 106 mEq/L (99-109); POTASSIUM 3.7 mEq/L (3.7-5.4); SODIUM 142 mEq/L (136-147)
[2017-07-31 21:44] LABS: GLUCOSE 100 mg/dL (70-99)
[2017-07-31 21:48] LABS: CREATININE 0.8 mg/dL (0.6-1.3); GFR ESTIMATE (CALCULATED) > 59 mL/min/
[2017-07-31 21:49] LABS: UREA NITROGEN (BUN) 25 mg/dL (9-23)
[2017-07-31 21:55] LABS: TROP-I INTERPRETATION NEGATIVE; TROPONIN-I < 0.01 ng/mL (0.0-0.30)
[2017-08-01 01:29] LABS: TROP-I INTERPRETATION NEGATIVE; TROPONIN-I < 0.01 ng/mL (0.0-0.30)
[2017-08-01 02:15] VITALS: BP 122/67
== END 2017-08-01 02:32 | disposition home or self-care (01) ==
LOC: EME → EDBD 21:09 → EME 08-01 02:32
PROVIDERS: Emergency Medicine
DX: R07.9 Chest pain, unspecified (principal); Z86.718 Personal history of other venous thrombosis and embolism; Z79.01 Long term (current) use of anticoagulants; J45.909 Unspecified asthma, uncomplicated; E78.5 Hyperlipidemia, unspecified
CPT/HCPCS: 71046; 80048; 84484; 85027; 93005; 99281; 99285

== ENCOUNTER 2017-08-08 23:06 | Emergency (ER) | payer OTHER ==
[~2017-08-08] VITALS: Ht 162.6 cm; Wt 130.9 kg
[2017-08-08 23:22] LABS: HEMATOCRIT 36.7 % (36.0-46.0); HEMOGLOBIN 11.9 G/DL (11.9-15.5); MCH 30.7 PG (29.0-34.0); MCHC 32.4 G/DL (30.0-36.0); MCV 94.8 FL (83-99); PLATELET COUNT 168 K/uL (156-360); RBC DIS.WIDTH-CV 14.5 % (11.8-14.6); RED BLOOD COUNT 3.87 M/uL (3.80-5.20); WHITE BLOOD COUNT 5.6 K/uL (4.1-10.2)
[2017-08-08 23:32] LABS: CHLORIDE 107 mEq/L (99-109); POTASSIUM 3.8 mEq/L (3.7-5.4); SODIUM 144 mEq/L (136-147)
[2017-08-08 23:34] LABS: GLUCOSE 106 mg/dL (70-99)
[2017-08-08 23:38] LABS: CREATININE 0.7 mg/dL (0.6-1.3); GFR ESTIMATE (CALCULATED) > 59 mL/min/
[2017-08-08 23:39] LABS: UREA NITROGEN (BUN) 19 mg/dL (9-23)
[2017-08-08 23:46] LABS: TROP-I INTERPRETATION NEGATIVE; TROPONIN-I < 0.01 ng/mL (0.0-0.30)
[2017-08-09 01:32] LABS: TROP-I INTERPRETATION NEGATIVE; TROPONIN-I < 0.01 ng/mL (0.0-0.30)
[2017-08-09 02:15] VITALS: BP 137/67
== END 2017-08-09 02:25 | disposition home or self-care (01) ==
LOC: EME → EDBD 23:06 → EME 08-09 02:25
PROVIDERS: Emergency Medicine
DX: R07.9 Chest pain, unspecified (principal); E78.5 Hyperlipidemia, unspecified; I50.9 Heart failure, unspecified; I48.91 Unspecified atrial fibrillation; J45.909 Unspecified asthma, uncomplicated; K21.9 Gastro-esophageal reflux disease without esophagitis; F41.9 Anxiety disorder, unspecified; Z86.718 Personal history of other venous thrombosis and embolism; F32.9 Major depressive disorder, single episode, unspecified; Z88.2 Allergy status to sulfonamides; Z88.5 Allergy status to narcotic agent
CPT/HCPCS: 71046; 80048; 84484; 85027; 93005; 99281; 99285

== ENCOUNTER 2017-09-01 00:48 | Emergency (ER) | payer OTHER ==
[~2017-09-01] VITALS: Ht 162.6 cm; Wt 131.0 kg
[2017-09-01 01:28] LABS: BASOPHIL (%) 0.7 % (0-1); BASOPHIL COUNT 0.1 K/uL (0-0.1); EOSINOPHIL (%) 1.9 % (0-5); EOSINOPHIL COUNT 0.1 K/uL (0-0.3); HEMATOCRIT 34.7 % (36.0-46.0); HEMOGLOBIN 11.3 G/DL (11.9-15.5); IMMATURE GRANULOCYTE (%) 0.3 % (0.0-0.7); LYMPHOCYTE COUNT 2.1 K/uL (1.0-2.8); MCH 30.6 PG (29.0-34.0); MCHC 32.6 G/DL (30.0-36.0); MONOCYTE (%) 9.3 % (3-12); MONOCYTE COUNT 0.6 K/uL (0-0.8); NEUTROPHIL (%) 56.8 % (45-76); NEUTROPHIL COUNT 3.9 K/uL (1.8-6.4); PLATELET COUNT 175 K/uL (156-360); RBC DIS.WIDTH-CV 13.5 % (11.8-14.6); RBC DIS.WIDTH-SD 46.3 % (39-53); RED BLOOD COUNT 3.69 M/uL (3.80-5.20); WHITE BLOOD COUNT 6.9 K/uL (4.1-10.2)
[2017-09-01 01:38] LABS: CHLORIDE 103 mEq/L (99-109); POTASSIUM 3.8 mEq/L (3.7-5.4); SODIUM 140 mEq/L (136-147)
[2017-09-01 01:39] LABS: GLUCOSE 94 mg/dL (70-99)
[2017-09-01 01:43] LABS: CREATININE 0.8 mg/dL (0.6-1.3); GFR ESTIMATE (CALCULATED) > 59 mL/min/
[2017-09-01 01:44] LABS: UREA NITROGEN (BUN) 20 mg/dL (9-23)
[2017-09-01 01:49] LABS: TROP-I INTERPRETATION NEGATIVE; TROPONIN-I < 0.01 ng/mL (0.0-0.30)
[2017-09-01 04:02] LABS: TROP-I INTERPRETATION NEGATIVE; TROPONIN-I < 0.01 ng/mL (0.0-0.30)
[2017-09-01 04:48] VITALS: BP 130/70
== END 2017-09-01 04:48 | disposition home or self-care (01) ==
LOC: EME → EDBD 00:48 → EME 00:48
PROVIDERS: Emergency Medicine
DX: R07.9 Chest pain, unspecified (principal); J45.909 Unspecified asthma, uncomplicated; I50.9 Heart failure, unspecified; F32.9 Major depressive disorder, single episode, unspecified; E78.5 Hyperlipidemia, unspecified; G43.909 Migraine, unspecified, not intractable, without status migrainosus; K21.9 Gastro-esophageal reflux disease without esophagitis; F41.9 Anxiety disorder, unspecified; Z86.718 Personal history of other venous thrombosis and embolism; Z88.8 Allergy status to other drugs, medicaments and biological substances; Z88.2 Allergy status to sulfonamides; Z88.6 Allergy status to analgesic agent
CPT/HCPCS: 71046; 80048; 83880; 84484; 85025; 93005

== ENCOUNTER 2017-09-06 00:07 | Emergency (ER) | payer OTHER ==
[~2017-09-06] VITALS: Ht 162.6 cm; Wt 133.9 kg
[2017-09-06 00:25] LABS: HEMATOCRIT 36.5 % (36.0-46.0); HEMOGLOBIN 12.1 G/DL (11.9-15.5); MCH 31.5 PG (29.0-34.0); MCHC 33.2 G/DL (30.0-36.0); MCV 95.1 FL (83-99); PLATELET COUNT 187 K/uL (156-360); RBC DIS.WIDTH-CV 13.6 % (11.8-14.6); RBC DIS.WIDTH-SD 47.5 % (39-53); RED BLOOD COUNT 3.84 M/uL (3.80-5.20); WHITE BLOOD COUNT 6.5 K/uL (4.1-10.2)
[2017-09-06 00:46] LABS: TROP-I INTERPRETATION NEGATIVE; TROPONIN-I < 0.01 ng/mL (0.0-0.30)
[2017-09-06 00:49] LABS: CHLORIDE 106 MEQ/L (99-109); CREATININE 0.7 MG/DL (0.6-1.3); GFR ESTIMATE (CALCULATED) > 59 mL/min/; GLUCOSE 102 mg/dL (70-99); POTASSIUM 3.7 MEQ/L (3.7-5.4); SODIUM 141 MEQ/L (136-147); UREA NITROGEN (BUN) 21 mg/dL (9-23)
[2017-09-06 03:04] LABS: TROP-I INTERPRETATION NEGATIVE; TROPONIN-I < 0.01 ng/mL (0.0-0.30)
[2017-09-06] MEDS ORDERED: ULTRAM50 MG PO (03:41)
[2017-09-06 03:55] VITALS: BP 133/75
== END 2017-09-06 03:56 | disposition home or self-care (01) ==
LOC: EME → EDBD 00:07 → EME 03:56
PROVIDERS: Emergency Medicine
DX: R07.89 Other chest pain (principal); I50.9 Heart failure, unspecified; I48.91 Unspecified atrial fibrillation; E78.5 Hyperlipidemia, unspecified; J45.909 Unspecified asthma, uncomplicated; Z86.718 Personal history of other venous thrombosis and embolism; K21.9 Gastro-esophageal reflux disease without esophagitis; F32.9 Major depressive disorder, single episode, unspecified; F41.9 Anxiety disorder, unspecified; Z88.2 Allergy status to sulfonamides; Z88.5 Allergy status to narcotic agent; Z88.8 Allergy status to other drugs, medicaments and biological substances
CPT/HCPCS: 71046; 80048; 84484; 85027; 93005; 99281; 99284

== ENCOUNTER 2017-09-11 00:43 | Emergency (ER) | payer OTHER ==
[~2017-09-11] VITALS: Ht 162.6 cm; Wt 131.7 kg
[2017-09-11 01:20] LABS: HEMOGLOBIN 11.3 G/DL (11.9-15.5); MCH 31.5 PG (29.0-34.0); MCHC 33.2 G/DL (30.0-36.0); MCV 94.7 FL (83-99); PLATELET COUNT 154 K/uL (156-360); RBC DIS.WIDTH-CV 13.4 % (11.8-14.6); RBC DIS.WIDTH-SD 46.5 % (39-53); RED BLOOD COUNT 3.59 M/uL (3.80-5.20); WHITE BLOOD COUNT 6.1 K/uL (4.1-10.2)
[2017-09-11 01:31] LABS: CHLORIDE 107 mEq/L (99-109); POTASSIUM 3.5 mEq/L (3.7-5.4); SODIUM 142 mEq/L (136-147)
[2017-09-11 01:33] LABS: GLUCOSE 117 mg/dL (70-99)
[2017-09-11 01:36] LABS: CREATININE 0.7 mg/dL (0.6-1.3); GFR ESTIMATE (CALCULATED) > 59 mL/min/
[2017-09-11 01:37] LABS: UREA NITROGEN (BUN) 13 mg/dL (9-23)
[2017-09-11 01:40] LABS: TROP-I INTERPRETATION NEGATIVE; TROPONIN-I < 0.01 ng/mL (0.0-0.30)
[2017-09-11 03:21] LABS: TROP-I INTERPRETATION NEGATIVE; TROPONIN-I < 0.01 ng/mL (0.0-0.30)
[2017-09-11 04:17] VITALS: BP 125/66
== END 2017-09-11 04:26 | disposition home or self-care (01) ==
LOC: EME 00:43
PROVIDERS: Emergency Medicine
DX: R07.89 Other chest pain (principal); R00.1 Bradycardia, unspecified; R94.31 Abnormal electrocardiogram [ECG] [EKG]; I50.9 Heart failure, unspecified; E78.5 Hyperlipidemia, unspecified; J45.909 Unspecified asthma, uncomplicated; K21.9 Gastro-esophageal reflux disease without esophagitis; F41.9 Anxiety disorder, unspecified; F32.9 Major depressive disorder, single episode, unspecified; Z79.01 Long term (current) use of anticoagulants; Z86.718 Personal history of other venous thrombosis and embolism; Z90.49 Acquired absence of other specified parts of digestive tract; Z88.7 Allergy status to serum and vaccine; Z88.2 Allergy status to sulfonamides; Z88.5 Allergy status to narcotic agent; Z88.8 Allergy status to other drugs, medicaments and biological substances
CPT/HCPCS: 71045; 80048; 83880; 84484; 85027; 93005; 99281; 99284

== ENCOUNTER 2017-09-17 05:56 | Emergency (ER) | payer OTHER ==
[~2017-09-17] VITALS: Ht 162.6 cm; Wt 129.5 kg
[2017-09-17 06:26] LABS: HEMATOCRIT 35.9 % (36.0-46.0); HEMOGLOBIN 11.6 G/DL (11.9-15.5); MCH 30.8 PG (29.0-34.0); MCHC 32.3 G/DL (30.0-36.0); MCV 95.2 FL (83-99); PLATELET COUNT 148 K/uL (156-360); RBC DIS.WIDTH-CV 13.2 % (11.8-14.6); RBC DIS.WIDTH-SD 45.9 % (39-53); RED BLOOD COUNT 3.77 M/uL (3.80-5.20); WHITE BLOOD COUNT 5.1 K/uL (4.1-10.2)
[2017-09-17 06:48] LABS: TROP-I INTERPRETATION NEGATIVE; TROPONIN-I 0.01 ng/mL (0.0-0.30)
[2017-09-17 07:18] LABS: CHLORIDE 105 MEQ/L (99-109); SODIUM 144 MEQ/L (136-147)
[2017-09-17 07:21] LABS: POTASSIUM 4.3 MEQ/L (3.7-5.4)
[2017-09-17 07:24] LABS: CREATININE 0.6 MG/DL (0.6-1.3); GFR ESTIMATE (CALCULATED) > 59 mL/min/; GLUCOSE 90 mg/dL (70-99); UREA NITROGEN (BUN) 17 mg/dL (9-23)
[2017-09-17 10:02] LABS: TROP-I INTERPRETATION NEGATIVE; TROPONIN-I < 0.01 ng/mL (0.0-0.30)
[2017-09-17 10:31] VITALS: BP 133/75
== END 2017-09-17 10:32 | disposition home or self-care (01) ==
LOC: EME → EDBD 05:56 → EME 10:32
PROVIDERS: Emergency Medicine
DX: R07.89 Other chest pain (principal); R00.1 Bradycardia, unspecified; E78.5 Hyperlipidemia, unspecified; K21.9 Gastro-esophageal reflux disease without esophagitis; J45.909 Unspecified asthma, uncomplicated; F32.9 Major depressive disorder, single episode, unspecified; F41.9 Anxiety disorder, unspecified; Z79.891 Long term (current) use of opiate analgesic; Z79.01 Long term (current) use of anticoagulants; Z90.49 Acquired absence of other specified parts of digestive tract; Z86.79 Personal history of other diseases of the circulatory system; Z87.19 Personal history of other diseases of the digestive system; Z86.718 Personal history of other venous thrombosis and embolism; Z85.9 Personal history of malignant neoplasm, unspecified; J30.2 Other seasonal allergic rhinitis; Z91.048 Other nonmedicinal substance allergy status; Z88.7 Allergy status to serum and vaccine; Z88.2 Allergy status to sulfonamides; Z88.5 Allergy status to narcotic agent; Z88.6 Allergy status to analgesic agent; Z88.8 Allergy status to other drugs, medicaments and biological substances
CPT/HCPCS: 71045; 80048; 83880; 84484; 85027; 93005; 99281; 99285

== ENCOUNTER 2017-09-23 03:53 | Emergency (ER) | payer OTHER ==
[~2017-09-23] VITALS: Ht 162.6 cm; Wt 135.0 kg
[2017-09-23 04:44] LABS: HEMATOCRIT 34.5 % (36.0-46.0); HEMOGLOBIN 11.3 G/DL (11.9-15.5); MCHC 32.8 G/DL (30.0-36.0); MCV 94.8 FL (83-99); PLATELET COUNT 168 K/uL (156-360); RBC DIS.WIDTH-CV 13.2 % (11.8-14.6); RBC DIS.WIDTH-SD 46.3 % (39-53); RED BLOOD COUNT 3.64 M/uL (3.80-5.20); WHITE BLOOD COUNT 6.4 K/uL (4.1-10.2)
[2017-09-23 04:48] LABS: ALBUMIN 3.7 g/dL (3.2-4.8); CHLORIDE 103 mEq/L (99-109); POTASSIUM 4.3 mEq/L (3.7-5.4); SODIUM 140 mEq/L (136-147)
[2017-09-23 04:50] LABS: GLUCOSE 96 mg/dL (70-99); TOTAL PROTEIN 6.9 g/dL (6.4-8.3)
[2017-09-23 04:52] LABS: TOTAL BILIRUBIN 0.4 mg/dL (0.0-1.0)
[2017-09-23 04:54] LABS: ALKALINE PHOSPHATASE 109 IU/L (3-129); CREATININE 0.8 mg/dL (0.6-1.3); GFR ESTIMATE (CALCULATED) > 59 mL/min/
[2017-09-23 04:55] LABS: UREA NITROGEN (BUN) 20 mg/dL (9-23)
[2017-09-23 04:56] LABS: AST (GOT) 13 IU/L (2-34)
[2017-09-23 04:57] LABS: ALT (GPT) 7 IU/L (3-49); LIPASE 22 U/L (1.0-51.0)
[2017-09-23 05:01] LABS: TROP-I INTERPRETATION NEGATIVE; TROPONIN-I < 0.01 ng/mL (0.0-0.30)
[2017-09-23 08:14] LABS: TROP-I INTERPRETATION NEGATIVE; TROPONIN-I < 0.01 ng/mL (0.0-0.30)
[2017-09-23 09:45] VITALS: BP 136/67
== END 2017-09-23 09:46 | disposition home or self-care (01) ==
LOC: EME 03:53
PROVIDERS: Emergency Medicine
DX: R07.89 Other chest pain (principal); I87.8 Other specified disorders of veins; Z82.49 Family history of ischemic heart disease and other diseases of the circulatory system; E78.5 Hyperlipidemia, unspecified; J45.909 Unspecified asthma, uncomplicated; Z86.718 Personal history of other venous thrombosis and embolism; Z90.49 Acquired absence of other specified parts of digestive tract
CPT/HCPCS: 71045; 80053; 83690; 84484; 85027; 93005; 99281; 99285

== ENCOUNTER 2017-09-29 02:44 | Emergency (ER) | payer OTHER ==
[~2017-09-29] VITALS: Ht 162.6 cm; Wt 133.0 kg
[2017-09-29 03:31] LABS: BASOPHIL (%) 0.5 % (0-1); EOSINOPHIL (%) 2.7 % (0-5); EOSINOPHIL COUNT 0.2 K/uL (0-0.3); HEMATOCRIT 34.6 % (36.0-46.0); HEMOGLOBIN 11.2 G/DL (11.9-15.5); IMMATURE GRANULOCYTE (%) 0.2 % (0.0-0.7); LYMPHOCYTE (%) 23.6 % (15-42); LYMPHOCYTE COUNT 1.5 K/uL (1.0-2.8); MCH 30.7 PG (29.0-34.0); MCHC 32.4 G/DL (30.0-36.0); MCV 94.8 FL (83-99); MONOCYTE (%) 9.1 % (3-12); MONOCYTE COUNT 0.6 K/uL (0-0.8); NEUTROPHIL (%) 63.9 % (45-76); NEUTROPHIL COUNT 4.1 K/uL (1.8-6.4); PLATELET COUNT 186 K/uL (156-360); RBC DIS.WIDTH-CV 13.1 % (11.8-14.6); RBC DIS.WIDTH-SD 45.6 % (39-53); RED BLOOD COUNT 3.65 M/uL (3.80-5.20); WHITE BLOOD COUNT 6.4 K/uL (4.1-10.2)
[2017-09-29 03:40] LABS: CHLORIDE 106 mEq/L (99-109); POTASSIUM 3.8 mEq/L (3.7-5.4); SODIUM 142 mEq/L (136-147)
[2017-09-29 03:41] LABS: GLUCOSE 96 mg/dL (70-99)
[2017-09-29 03:45] LABS: CREATININE 0.7 mg/dL (0.6-1.3); GFR ESTIMATE (CALCULATED) > 59 mL/min/
[2017-09-29 03:46] LABS: UREA NITROGEN (BUN) 14 mg/dL (9-23)
[2017-09-29 03:52] LABS: TROP-I INTERPRETATION NEGATIVE; TROPONIN-I 0.01 ng/mL (0.0-0.30)
[2017-09-29 05:56] LABS: TROP-I INTERPRETATION NEGATIVE; TROPONIN-I 0.02 ng/mL (0.0-0.30)
[2017-09-29 06:29] VITALS: BP 121/64
== END 2017-09-29 06:30 | disposition home or self-care (01) ==
LOC: EME → EDBD 02:44 → EME 06:30
PROVIDERS: Emergency Medicine
DX: R07.9 Chest pain, unspecified (principal); G43.909 Migraine, unspecified, not intractable, without status migrainosus; I50.9 Heart failure, unspecified; E78.5 Hyperlipidemia, unspecified; K21.9 Gastro-esophageal reflux disease without esophagitis; Z86.718 Personal history of other venous thrombosis and embolism; J45.909 Unspecified asthma, uncomplicated; F32.9 Major depressive disorder, single episode, unspecified; F41.9 Anxiety disorder, unspecified; Z88.5 Allergy status to narcotic agent; Z88.2 Allergy status to sulfonamides; Z88.8 Allergy status to other drugs, medicaments and biological substances
CPT/HCPCS: 71045; 80048; 84484; 85025; 93005; 99281; 99285

== ENCOUNTER 2017-09-30 23:33 | Observation (INO) | payer OTHER ==
[~2017-09-30] VITALS: Ht 162.6 cm; Wt 138.5 kg
[2017-10-01 00:15] LABS: BASOPHIL (%) 0.6 % (0-1); EOSINOPHIL COUNT 0.2 K/uL (0-0.3); HEMATOCRIT 34.4 % (36.0-46.0); IMMATURE GRANULOCYTE (%) 0.6 % (0.0-0.7); LYMPHOCYTE (%) 34.9 % (15-42); LYMPHOCYTE COUNT 2.2 K/uL (1.0-2.8); MCH 30.6 PG (29.0-34.0); MCV 95.6 FL (83-99); MONOCYTE (%) 8.3 % (3-12); MONOCYTE COUNT 0.5 K/uL (0-0.8); NEUTROPHIL (%) 52.6 % (45-76); NEUTROPHIL COUNT 3.4 K/uL (1.8-6.4); PLATELET COUNT 187 K/uL (156-360); RBC DIS.WIDTH-CV 13.1 % (11.8-14.6); RBC DIS.WIDTH-SD 45.8 % (39-53); WHITE BLOOD COUNT 6.4 K/uL (4.1-10.2)
[2017-10-01 00:33] LABS: CHLORIDE 105 mEq/L (99-109); POTASSIUM 3.8 mEq/L (3.7-5.4); SODIUM 140 mEq/L (136-147)
[2017-10-01 00:35] LABS: GLUCOSE 87 mg/dL (70-99)
[2017-10-01 00:39] LABS: CREATININE 0.7 mg/dL (0.6-1.3); GFR ESTIMATE (CALCULATED) > 59 mL/min/; UREA NITROGEN (BUN) 20 mg/dL (9-23)
[2017-10-01 00:44] LABS: TROP-I INTERPRETATION NEGATIVE; TROPONIN-I < 0.01 ng/mL (0.0-0.30)
[2017-10-01 06:30] LABS: TROP-I INTERPRETATION NEGATIVE; TROPONIN-I < 0.01 ng/mL (0.0-0.30)
[2017-10-01 08:08] VITALS: BP 126/60
[2017-10-01 08:10] VITALS: BP 126/60
[2017-10-01 12:00] VITALS: BP 115/57
[2017-10-01] MEDS ORDERED: MULTI-VITAMIN1 EAC3 PO (12:14)
[2017-10-01] MEDS ORDERED: REFRESH OPTIVE10 ML BOTH EYES (12:15)
[2017-10-01] MEDS ORDERED: DEPAKOTE ER500 MG PO (12:16)
[2017-10-01 12:45] LABS: TROP-I INTERPRETATION NEGATIVE; TROPONIN-I < 0.01 ng/mL (0.0-0.30)
[2017-10-01] MEDS ORDERED: PRADAXA150 MG PO (13:37)
[2017-10-01 16:00] VITALS: BP 120/57
== END 2017-10-01 18:29 | disposition home or self-care (01) ==
LOC: EME → EDBD 23:33 → EME 23:33 → ENPENDDIS 10-01 → EDOF 10-01 02:03 → ENRESERV 10-01 02:04 → 4EAST 10-01 07:22
PROVIDERS: Emergency Medicine; Physician Assistant
DX: R07.9 Chest pain, unspecified (principal); I48.0 Paroxysmal atrial fibrillation; Z79.01 Long term (current) use of anticoagulants; I25.10 Atherosclerotic heart disease of native coronary artery without angina pectoris; I11.0 Hypertensive heart disease with heart failure; I50.32 Chronic diastolic (congestive) heart failure; E78.5 Hyperlipidemia, unspecified; F32.9 Major depressive disorder, single episode, unspecified; F41.9 Anxiety disorder, unspecified; E03.9 Hypothyroidism, unspecified; G89.29 Other chronic pain; Z87.11 Personal history of peptic ulcer disease; J45.909 Unspecified asthma, uncomplicated; G43.909 Migraine, unspecified, not intractable, without status migrainosus; Z90.49 Acquired absence of other specified parts of digestive tract; Z88.2 Allergy status to sulfonamides; Z88.5 Allergy status to narcotic agent; Z88.7 Allergy status to serum and vaccine; Z88.6 Allergy status to analgesic agent; Z88.8 Allergy status to other drugs, medicaments and biological substances
CPT/HCPCS: 71046; 80048; 83880; 84484; 85025; 93005; 99202; 99281; 99283; G0378

== ENCOUNTER 2017-10-05 22:47 | Emergency (ER) | payer OTHER ==
[~2017-10-05] VITALS: Ht 162.6 cm; Wt 129.5 kg
[~2017-10-05 22:47] MED LIST changes: +PRADAXA150 MG PO
[2017-10-05 23:21] LABS: HEMATOCRIT 35.1 % (36.0-46.0); HEMOGLOBIN 11.6 G/DL (11.9-15.5); MCH 31.3 PG (29.0-34.0); MCV 94.6 FL (83-99); PLATELET COUNT 178 K/uL (156-360); RBC DIS.WIDTH-CV 13.2 % (11.8-14.6); RBC DIS.WIDTH-SD 45.1 % (39-53); RED BLOOD COUNT 3.71 M/uL (3.80-5.20); WHITE BLOOD COUNT 6.2 K/uL (4.1-10.2)
[2017-10-05 23:35] LABS: CHLORIDE 105 mEq/L (99-109); SODIUM 141 mEq/L (136-147)
[2017-10-05 23:37] LABS: GLUCOSE 108 mg/dL (70-99)
[2017-10-05 23:40] LABS: CREATININE 0.8 mg/dL (0.6-1.3); GFR ESTIMATE (CALCULATED) > 59 mL/min/
[2017-10-05 23:41] LABS: UREA NITROGEN (BUN) 21 mg/dL (9-23)
[2017-10-05 23:47] LABS: TROP-I INTERPRETATION NEGATIVE; TROPONIN-I < 0.01 ng/mL (0.0-0.30)
[2017-10-06 03:41] LABS: TROP-I INTERPRETATION NEGATIVE; TROPONIN-I < 0.01 ng/mL (0.0-0.30)
[2017-10-06 04:36] VITALS: BP 153/74
== END 2017-10-06 04:38 | disposition home or self-care (01) ==
LOC: EME 22:47
PROVIDERS: Emergency Medicine
DX: R07.9 Chest pain, unspecified (principal); R05 Cough; J45.909 Unspecified asthma, uncomplicated; E78.5 Hyperlipidemia, unspecified; Z86.718 Personal history of other venous thrombosis and embolism; Z88.2 Allergy status to sulfonamides; Z90.49 Acquired absence of other specified parts of digestive tract; Z79.01 Long term (current) use of anticoagulants
CPT/HCPCS: 71046; 80048; 84484; 85027; 93005; 99281; 99285

== ENCOUNTER 2017-10-08 21:44 | Emergency (ER) | payer OTHER ==
[~2017-10-08] VITALS: Ht 165.1 cm; Wt 130.0 kg
[2017-10-08 23:40] VITALS: BP 146/63
== END 2017-10-09 00:06 | disposition home or self-care (01) ==
LOC: EME → EDBD 21:44 → EME 10-09 00:06
DX: J45.901 Unspecified asthma with (acute) exacerbation (principal); I50.9 Heart failure, unspecified; E78.5 Hyperlipidemia, unspecified; K21.9 Gastro-esophageal reflux disease without esophagitis; F32.9 Major depressive disorder, single episode, unspecified; F41.9 Anxiety disorder, unspecified; Z79.01 Long term (current) use of anticoagulants; Z86.718 Personal history of other venous thrombosis and embolism; Z85.9 Personal history of malignant neoplasm, unspecified; Z90.49 Acquired absence of other specified parts of digestive tract; Z88.5 Allergy status to narcotic agent; Z88.2 Allergy status to sulfonamides; Z88.7 Allergy status to serum and vaccine; Z88.6 Allergy status to analgesic agent
CPT/HCPCS: 80048; 84484; 85027; 93005; 99281; 99284; J1100

== ENCOUNTER 2017-10-12 23:55 | Emergency (ER) | payer OTHER ==
[~2017-10-12] VITALS: Ht 165.1 cm; Wt 130.0 kg
[2017-10-13 00:33] LABS: HEMATOCRIT 36.2 % (36.0-46.0); HEMOGLOBIN 11.8 G/DL (11.9-15.5); MCH 29.6 PG (29.0-34.0); MCHC 32.6 G/DL (30.0-36.0); PLATELET COUNT 156 K/uL (156-360); RBC DIS.WIDTH-CV 12.9 % (11.8-14.6); RBC DIS.WIDTH-SD 43.3 % (39-53); RED BLOOD COUNT 3.98 M/uL (3.80-5.20)
[2017-10-13 01:05] LABS: CHLORIDE 102 mEq/L (99-109); POTASSIUM 3.6 mEq/L (3.7-5.4); SODIUM 143 mEq/L (136-147)
[2017-10-13 01:07] LABS: GLUCOSE 104 mg/dL (70-99)
[2017-10-13 01:11] LABS: CREATININE 0.7 mg/dL (0.6-1.3); GFR ESTIMATE (CALCULATED) > 59 mL/min/; UREA NITROGEN (BUN) 12 mg/dL (9-23)
[2017-10-13 01:18] LABS: TROP-I INTERPRETATION NEGATIVE; TROPONIN-I 0.03 ng/mL (0.0-0.30)
[2017-10-13 02:17] LABS: BASOPHIL (%) 0.4 % (0-1); EOSINOPHIL (%) 1.2 % (0-5); EOSINOPHIL COUNT 0.1 K/uL (0-0.3); IMMATURE GRANULOCYTE (%) 0.2 % (0.0-0.7); LYMPHOCYTE (%) 52.6 % (15-42); LYMPHOCYTE COUNT 2.6 K/uL (1.0-2.8); MONOCYTE (%) 9.3 % (3-12); MONOCYTE COUNT 0.5 K/uL (0-0.8); NEUTROPHIL (%) 36.3 % (45-76); NEUTROPHIL COUNT 1.8 K/uL (1.8-6.4)
[2017-10-13 02:58] LABS: TROP-I INTERPRETATION NEGATIVE; TROPONIN-I 0.01 ng/mL (0.0-0.30)
[2017-10-13 04:06] VITALS: BP 128/67
== END 2017-10-13 04:07 | disposition home or self-care (01) ==
LOC: EME → EDBD 23:55 → EME 23:55
PROVIDERS: Emergency Medicine
DX: R07.89 Other chest pain (principal); F41.9 Anxiety disorder, unspecified; I48.91 Unspecified atrial fibrillation; J45.909 Unspecified asthma, uncomplicated; I50.9 Heart failure, unspecified; Z86.718 Personal history of other venous thrombosis and embolism; K21.9 Gastro-esophageal reflux disease without esophagitis; F32.9 Major depressive disorder, single episode, unspecified; E78.5 Hyperlipidemia, unspecified; Z88.5 Allergy status to narcotic agent; Z88.2 Allergy status to sulfonamides; Z88.7 Allergy status to serum and vaccine; Z79.01 Long term (current) use of anticoagulants
CPT/HCPCS: 71045; 80048; 84484; 85025; 93005; 99281; 99284

== ENCOUNTER 2017-10-18 00:12 | Emergency (ER) | payer OTHER ==
[~2017-10-18] VITALS: Ht 162.6 cm; Wt 132.3 kg
[2017-10-18 00:35] LABS: BASOPHIL (%) 0.2 % (0-1); EOSINOPHIL (%) 3.3 % (0-5); EOSINOPHIL COUNT 0.2 K/uL (0-0.3); HEMATOCRIT 35.4 % (36.0-46.0); HEMOGLOBIN 11.5 G/DL (11.9-15.5); IMMATURE GRANULOCYTE (%) 0.4 % (0.0-0.7); LYMPHOCYTE (%) 38.2 % (15-42); LYMPHOCYTE COUNT 1.9 K/uL (1.0-2.8); MCH 29.9 PG (29.0-34.0); MCHC 32.5 G/DL (30.0-36.0); MCV 91.9 FL (83-99); MONOCYTE COUNT 0.5 K/uL (0-0.8); NEUTROPHIL (%) 47.9 % (45-76); NEUTROPHIL COUNT 2.4 K/uL (1.8-6.4); RBC DIS.WIDTH-CV 12.9 % (11.8-14.6); RBC DIS.WIDTH-SD 43.4 % (39-53); RED BLOOD COUNT 3.85 M/uL (3.80-5.20); WHITE BLOOD COUNT 5.1 K/uL (4.1-10.2)
[2017-10-18 00:37] LABS: PLATELET COUNT 213 K/uL (156-360)
[2017-10-18 00:46] LABS: ALBUMIN 3.5 g/dL (3.2-4.8); CHLORIDE 105 mEq/L (99-109); POTASSIUM 3.9 mEq/L (3.7-5.4); SODIUM 143 mEq/L (136-147)
[2017-10-18 00:49] LABS: GLUCOSE 107 mg/dL (70-99); TOTAL PROTEIN 6.8 g/dL (6.4-8.3)
[2017-10-18 00:51] LABS: TOTAL BILIRUBIN 0.3 mg/dL (0.0-1.0)
[2017-10-18 00:52] LABS: ALKALINE PHOSPHATASE 89 IU/L (3-129); CREATININE 0.7 mg/dL (0.6-1.3); GFR ESTIMATE (CALCULATED) > 59 mL/min/
[2017-10-18 00:54] LABS: AST (GOT) 12 IU/L (2-34); UREA NITROGEN (BUN) 18 mg/dL (9-23)
[2017-10-18 00:55] LABS: ALT (GPT) 7 IU/L (3-49)
[2017-10-18 00:56] LABS: TROP-I INTERPRETATION NEGATIVE; TROPONIN-I < 0.01 ng/mL (0.0-0.30)
[2017-10-18 03:18] LABS: TROP-I INTERPRETATION NEGATIVE; TROPONIN-I < 0.01 ng/mL (0.0-0.30)
[2017-10-18 03:52] VITALS: BP 132/95
== END 2017-10-18 03:52 | disposition home or self-care (01) ==
LOC: EME → EDBD 00:12 → EME 03:52
PROVIDERS: Emergency Medicine
DX: R00.2 Palpitations (principal); I48.91 Unspecified atrial fibrillation; R07.89 Other chest pain; Z86.718 Personal history of other venous thrombosis and embolism; E78.5 Hyperlipidemia, unspecified; J45.909 Unspecified asthma, uncomplicated; Z88.2 Allergy status to sulfonamides
CPT/HCPCS: 71046; 80053; 83735; 84484; 85025; 93005; 99281; 99285

== ENCOUNTER 2017-10-24 21:29 | Emergency (ER) | payer OTHER ==
[~2017-10-24] VITALS: Ht 162.6 cm; Wt 140.3 kg
[2017-10-24 21:51] LABS: HEMATOCRIT 35.6 % (36.0-46.0); HEMOGLOBIN 11.4 G/DL (11.9-15.5); MCH 29.6 PG (29.0-34.0); MCV 92.5 FL (83-99); PLATELET COUNT 209 K/uL (156-360); RBC DIS.WIDTH-CV 13.8 % (11.8-14.6); RBC DIS.WIDTH-SD 46.5 % (39-53); RED BLOOD COUNT 3.85 M/uL (3.80-5.20); WHITE BLOOD COUNT 5.3 K/uL (4.1-10.2)
[2017-10-24 22:03] LABS: CHLORIDE 102 mEq/L (99-109); POTASSIUM 4.4 mEq/L (3.7-5.4); SODIUM 141 mEq/L (136-147)
[2017-10-24 22:05] LABS: GLUCOSE 96 mg/dL (70-99)
[2017-10-24 22:08] LABS: TROP-I INTERPRETATION NEGATIVE; TROPONIN-I < 0.01 ng/mL (0.0-0.30)
[2017-10-24 22:09] LABS: CREATININE 0.8 mg/dL (0.6-1.3); GFR ESTIMATE (CALCULATED) > 59 mL/min/
[2017-10-24 22:10] LABS: UREA NITROGEN (BUN) 17 mg/dL (9-23)
[2017-10-25 00:06] LABS: TROP-I INTERPRETATION NEGATIVE; TROPONIN-I < 0.01 ng/mL (0.0-0.30)
[2017-10-25 00:26] VITALS: BP 128/76
== END 2017-10-25 00:27 | disposition home or self-care (01) ==
LOC: EME → EDBD 21:29 → EME 10-25 00:27
PROVIDERS: Emergency Medicine
DX: R07.89 Other chest pain (principal); E78.5 Hyperlipidemia, unspecified; J45.909 Unspecified asthma, uncomplicated; K21.9 Gastro-esophageal reflux disease without esophagitis; Z86.718 Personal history of other venous thrombosis and embolism; Z90.49 Acquired absence of other specified parts of digestive tract; Z90.710 Acquired absence of both cervix and uterus; Z88.2 Allergy status to sulfonamides
CPT/HCPCS: 71046; 80048; 84484; 85027; 93005; 99281; 99285

== ENCOUNTER 2017-10-29 01:58 | Emergency (ER) | payer OTHER ==
[~2017-10-29] VITALS: Ht 162.6 cm; Wt 135.6 kg
[2017-10-29 03:16] VITALS: BP 139/73
== END 2017-10-29 03:18 | disposition home or self-care (01) ==
LOC: EME 01:58
DX: M54.5 Low back pain (principal); M79.604 Pain in right leg; E78.5 Hyperlipidemia, unspecified; I48.91 Unspecified atrial fibrillation; J45.909 Unspecified asthma, uncomplicated; Z79.01 Long term (current) use of anticoagulants; Z90.49 Acquired absence of other specified parts of digestive tract
CPT/HCPCS: 99281; 99283

== ENCOUNTER 2017-11-01 01:55 | Emergency (ER) | payer OTHER ==
[~2017-11-01] VITALS: Ht 162.6 cm; Wt 129.0 kg
[2017-11-01 02:22] LABS: BASOPHIL (%) 0.6 % (0-1); EOSINOPHIL (%) 3.3 % (0-5); EOSINOPHIL COUNT 0.2 K/uL (0-0.3); HEMATOCRIT 34.6 % (36.0-46.0); HEMOGLOBIN 11.3 G/DL (11.9-15.5); IMMATURE GRANULOCYTE (%) 0.9 % (0.0-0.7); LYMPHOCYTE (%) 31.2 % (15-42); LYMPHOCYTE COUNT 2.2 K/uL (1.0-2.8); MCH 29.9 PG (29.0-34.0); MCHC 32.7 G/DL (30.0-36.0); MCV 91.5 FL (83-99); MONOCYTE (%) 9.4 % (3-12); MONOCYTE COUNT 0.7 K/uL (0-0.8); NEUTROPHIL (%) 54.6 % (45-76); NEUTROPHIL COUNT 3.8 K/uL (1.8-6.4); PLATELET COUNT 225 K/uL (156-360); RBC DIS.WIDTH-CV 14.5 % (11.8-14.6); RBC DIS.WIDTH-SD 48.4 % (39-53); RED BLOOD COUNT 3.78 M/uL (3.80-5.20)
[2017-11-01 02:33] LABS: CHLORIDE 103 mEq/L (99-109); POTASSIUM 3.8 mEq/L (3.7-5.4); SODIUM 139 mEq/L (136-147)
[2017-11-01 02:34] LABS: GLUCOSE 92 mg/dL (70-99)
[2017-11-01 02:38] LABS: CREATININE 0.8 mg/dL (0.6-1.3); GFR ESTIMATE (CALCULATED) > 59 mL/min/
[2017-11-01 02:39] LABS: UREA NITROGEN (BUN) 21 mg/dL (9-23)
[2017-11-01 02:47] LABS: TROP-I INTERPRETATION NEGATIVE; TROPONIN-I < 0.01 ng/mL (0.0-0.30)
[2017-11-01 05:09] LABS: TROP-I INTERPRETATION NEGATIVE; TROPONIN-I < 0.01 ng/mL (0.0-0.30)
[2017-11-01 06:38] VITALS: BP 122/74
== END 2017-11-01 06:45 | disposition home or self-care (01) ==
LOC: EME → EDBD 01:55 → EME 06:45
PROVIDERS: Emergency Medicine
DX: R07.89 Other chest pain (principal); I48.91 Unspecified atrial fibrillation; K21.9 Gastro-esophageal reflux disease without esophagitis; J45.909 Unspecified asthma, uncomplicated; E78.5 Hyperlipidemia, unspecified; I50.9 Heart failure, unspecified; F41.9 Anxiety disorder, unspecified; F32.9 Major depressive disorder, single episode, unspecified; Z86.718 Personal history of other venous thrombosis and embolism; Z90.49 Acquired absence of other specified parts of digestive tract; Z88.5 Allergy status to narcotic agent; Z88.2 Allergy status to sulfonamides; Z88.7 Allergy status to serum and vaccine; Z88.6 Allergy status to analgesic agent; Z88.8 Allergy status to other drugs, medicaments and biological substances
CPT/HCPCS: 71046; 80048; 84484; 85025; 93005; 99281; 99285

== ENCOUNTER 2017-11-13 23:59 | Emergency (ER) | payer OTHER ==
[~2017-11-13] VITALS: Ht 162.6 cm; Wt 135.5 kg
[2017-11-14 01:47] LABS: HEMATOCRIT 37.4 % (36.0-46.0); HEMOGLOBIN 12.2 G/DL (11.9-15.5); MCH 29.7 PG (29.0-34.0); MCHC 32.6 G/DL (30.0-36.0); PLATELET COUNT 186 K/uL (156-360); RBC DIS.WIDTH-CV 14.5 % (11.8-14.6); RBC DIS.WIDTH-SD 48.5 % (39-53); RED BLOOD COUNT 4.11 M/uL (3.80-5.20); WHITE BLOOD COUNT 6.4 K/uL (4.1-10.2)
[2017-11-14 02:08] LABS: ALBUMIN 3.9 g/dL (3.2-4.8)
[2017-11-14 02:09] LABS: CHLORIDE 104 mEq/L (99-109); SODIUM 143 mEq/L (136-147)
[2017-11-14 02:11] LABS: GLUCOSE 97 mg/dL (70-99); TOTAL PROTEIN 7.6 g/dL (6.4-8.3)
[2017-11-14 02:13] LABS: TOTAL BILIRUBIN 0.4 mg/dL (0.0-1.0)
[2017-11-14 02:14] LABS: ALKALINE PHOSPHATASE 106 IU/L (3-129)
[2017-11-14 02:15] LABS: CREATININE 0.7 mg/dL (0.6-1.3); GFR ESTIMATE (CALCULATED) > 59 mL/min/
[2017-11-14 02:16] LABS: AST (GOT) 13 IU/L (2-34); UREA NITROGEN (BUN) 13 mg/dL (9-23)
[2017-11-14 02:17] LABS: TROP-I INTERPRETATION NEGATIVE; TROPONIN-I < 0.01 ng/mL (0.0-0.30)
[2017-11-14 02:18] LABS: ALT (GPT) 8 IU/L (3-49); LIPASE 27 U/L (1.0-51.0)
[2017-11-14 02:51] VITALS: BP 128/73
== END 2017-11-14 02:52 | disposition home or self-care (01) ==
LOC: EME 23:59
DX: R07.89 Other chest pain (principal); I48.2 Chronic atrial fibrillation; K21.9 Gastro-esophageal reflux disease without esophagitis; E78.5 Hyperlipidemia, unspecified; I50.9 Heart failure, unspecified; J45.909 Unspecified asthma, uncomplicated; F41.9 Anxiety disorder, unspecified; F32.9 Major depressive disorder, single episode, unspecified; Z79.01 Long term (current) use of anticoagulants; Z86.718 Personal history of other venous thrombosis and embolism; Z90.49 Acquired absence of other specified parts of digestive tract; Z85.9 Personal history of malignant neoplasm, unspecified; Z88.7 Allergy status to serum and vaccine; Z88.2 Allergy status to sulfonamides; Z88.5 Allergy status to narcotic agent; Z88.6 Allergy status to analgesic agent; Z88.8 Allergy status to other drugs, medicaments and biological substances
CPT/HCPCS: 71046; 80053; 83690; 84484; 85027; 93005; 99281; 99284

== ENCOUNTER 2017-11-26 23:40 | Emergency (ER) | payer OTHER ==
[~2017-11-26] VITALS: Ht 162.6 cm; Wt 136.3 kg
[2017-11-27 00:10] LABS: HEMATOCRIT 37.6 % (36.0-46.0); MCH 29.2 PG (29.0-34.0); MCHC 31.9 G/DL (30.0-36.0); MCV 91.5 FL (83-99); PLATELET COUNT 192 K/uL (156-360); RBC DIS.WIDTH-CV 14.3 % (11.8-14.6); RBC DIS.WIDTH-SD 48.2 % (39-53); RED BLOOD COUNT 4.11 M/uL (3.80-5.20)
[2017-11-27 00:19] LABS: CHLORIDE 105 mEq/L (99-109); POTASSIUM 3.7 mEq/L (3.7-5.4); SODIUM 141 mEq/L (136-147)
[2017-11-27 00:21] LABS: GLUCOSE 108 mg/dL (70-99)
[2017-11-27 00:24] LABS: CREATININE 0.7 mg/dL (0.6-1.3); GFR ESTIMATE (CALCULATED) > 59 mL/min/
[2017-11-27 00:25] LABS: UREA NITROGEN (BUN) 21 mg/dL (9-23)
[2017-11-27 00:31] LABS: TROP-I INTERPRETATION NEGATIVE; TROPONIN-I < 0.01 ng/mL (0.0-0.30)
[2017-11-27 03:17] LABS: TROP-I INTERPRETATION NEGATIVE; TROPONIN-I 0.02 ng/mL (0.0-0.30)
[2017-11-27 03:46] LABS: ALBUMIN 3.8 g/dL (3.2-4.8)
[2017-11-27 03:51] LABS: TOTAL BILIRUBIN 0.3 mg/dL (0.0-1.0); TOTAL PROTEIN 7.1 g/dL (6.4-8.3)
[2017-11-27 03:52] LABS: ALKALINE PHOSPHATASE 105 IU/L (3-129)
[2017-11-27 03:54] LABS: AST (GOT) 12 IU/L (2-34); DIRECT BILIRUBIN 0.1 mg/dL (0.0-0.3)
[2017-11-27 03:55] LABS: ALT (GPT) 7 IU/L (3-49); LIPASE 26 U/L (1.0-51.0)
[2017-11-27 04:48] VITALS: BP 120/62
[2017-11-27 10:56] LABS: VALPROIC ACID (DEPAKOTE) 33.4 MCG/ML (50-100)
== END 2017-11-27 06:05 | disposition home or self-care (01) ==
LOC: EME 23:40
PROVIDERS: Emergency Medicine
DX: R07.89 Other chest pain (principal); I48.91 Unspecified atrial fibrillation; E78.5 Hyperlipidemia, unspecified; J45.909 Unspecified asthma, uncomplicated; I50.9 Heart failure, unspecified; G43.909 Migraine, unspecified, not intractable, without status migrainosus; K21.9 Gastro-esophageal reflux disease without esophagitis; F41.9 Anxiety disorder, unspecified; F32.9 Major depressive disorder, single episode, unspecified; Z85.9 Personal history of malignant neoplasm, unspecified; Z86.718 Personal history of other venous thrombosis and embolism; Z87.19 Personal history of other diseases of the digestive system; Z90.49 Acquired absence of other specified parts of digestive tract; Z88.5 Allergy status to narcotic agent; Z88.2 Allergy status to sulfonamides; Z88.7 Allergy status to serum and vaccine; Z88.6 Allergy status to analgesic agent
CPT/HCPCS: 71046; 80048; 80076; 80164; 83690; 83880; 84484; 85027; 93005

== ENCOUNTER 2017-12-02 04:38 | Emergency (ER) | payer OTHER ==
[~2017-12-02] VITALS: Ht 170.2 cm; Wt 130.0 kg
[2017-12-02 05:24] LABS: HEMATOCRIT 33.9 % (36.0-46.0); HEMOGLOBIN 10.9 G/DL (11.9-15.5); MCH 29.4 PG (29.0-34.0); MCHC 32.2 G/DL (30.0-36.0); MCV 91.4 FL (83-99); PLATELET COUNT 161 K/uL (156-360); RBC DIS.WIDTH-CV 14.4 % (11.8-14.6); RBC DIS.WIDTH-SD 48.1 % (39-53); RED BLOOD COUNT 3.71 M/uL (3.80-5.20); WHITE BLOOD COUNT 5.1 K/uL (4.1-10.2)
[2017-12-02 05:28] LABS: ALBUMIN 3.4 g/dL (3.2-4.8); CHLORIDE 105 mEq/L (99-109); POTASSIUM 3.6 mEq/L (3.7-5.4); SODIUM 142 mEq/L (136-147)
[2017-12-02 05:30] LABS: GLUCOSE 100 mg/dL (70-99)
[2017-12-02 05:31] LABS: TOTAL PROTEIN 6.4 g/dL (6.4-8.3)
[2017-12-02 05:34] LABS: ALKALINE PHOSPHATASE 96 IU/L (3-129); CREATININE 0.7 mg/dL (0.6-1.3); GFR ESTIMATE (CALCULATED) > 59 mL/min/
[2017-12-02 05:35] LABS: UREA NITROGEN (BUN) 15 mg/dL (9-23)
[2017-12-02 05:36] LABS: AST (GOT) 11 IU/L (2-34)
[2017-12-02 05:37] LABS: ALT (GPT) 6 IU/L (3-49); INTER. NORMALIZED RATIO 1.2; LIPASE 16 U/L (1.0-51.0)
[2017-12-02 05:40] LABS: PTT 48.3 SEC (25-37)
[2017-12-02 05:43] LABS: TROP-I INTERPRETATION NEGATIVE; TROPONIN-I < 0.01 ng/mL (0.0-0.30)
[2017-12-02 05:49] LABS: TOTAL BILIRUBIN 0.2 mg/dL (0.0-1.0)
[2017-12-02 06:31] LABS: VALPROIC ACID (DEPAKOTE) 19.2 MCG/ML (50-100)
[2017-12-02 06:38] VITALS: BP 113/60
== END 2017-12-02 06:39 | disposition home or self-care (01) ==
LOC: EME 04:38
PROVIDERS: Emergency Medicine
DX: R06.00 Dyspnea, unspecified (principal); I87.8 Other specified disorders of veins; I48.2 Chronic atrial fibrillation; I25.10 Atherosclerotic heart disease of native coronary artery without angina pectoris; I50.9 Heart failure, unspecified; E78.5 Hyperlipidemia, unspecified; F41.9 Anxiety disorder, unspecified; J45.909 Unspecified asthma, uncomplicated; K21.9 Gastro-esophageal reflux disease without esophagitis; G43.909 Migraine, unspecified, not intractable, without status migrainosus; F32.9 Major depressive disorder, single episode, unspecified; Z86.718 Personal history of other venous thrombosis and embolism; Z87.19 Personal history of other diseases of the digestive system; Z90.49 Acquired absence of other specified parts of digestive tract; Z88.5 Allergy status to narcotic agent; Z88.2 Allergy status to sulfonamides; Z88.7 Allergy status to serum and vaccine; Z88.6 Allergy status to analgesic agent; Z88.8 Allergy status to other drugs, medicaments and biological substances
CPT/HCPCS: 71045; 80053; 80164; 83690; 83880; 84484; 85027; 85610; 85730; 93005; 99281; 99284

== ENCOUNTER 2017-12-04 23:03 | Emergency (ER) | payer OTHER ==
[~2017-12-04] VITALS: Ht 162.6 cm; Wt 140.2 kg
[2017-12-05 00:18] LABS: TROP-I INTERPRETATION NEGATIVE; TROPONIN-I 0.01 ng/mL (0.0-0.30)
[2017-12-05 02:39] LABS: TROP-I INTERPRETATION NEGATIVE; TROPONIN-I < 0.01 ng/mL (0.0-0.30)
[2017-12-05 03:39] VITALS: BP 115/60
== END 2017-12-05 03:40 | disposition home or self-care (01) ==
LOC: EME → EDBD 23:03 → EME 23:03
PROVIDERS: Emergency Medicine
DX: R07.9 Chest pain, unspecified (principal); J45.909 Unspecified asthma, uncomplicated; I50.9 Heart failure, unspecified; E78.5 Hyperlipidemia, unspecified; F32.9 Major depressive disorder, single episode, unspecified; K21.9 Gastro-esophageal reflux disease without esophagitis; F41.9 Anxiety disorder, unspecified; Z86.718 Personal history of other venous thrombosis and embolism; Z90.49 Acquired absence of other specified parts of digestive tract; Z88.5 Allergy status to narcotic agent; Z88.2 Allergy status to sulfonamides; Z88.7 Allergy status to serum and vaccine; Z88.8 Allergy status to other drugs, medicaments and biological substances; Z88.6 Allergy status to analgesic agent
CPT/HCPCS: 71046; 84484; 93005; 99281; 99284

== ENCOUNTER 2017-12-08 06:29 | Emergency (ER) | payer OTHER ==
[~2017-12-08] VITALS: Ht 162.6 cm; Wt 141.3 kg
[2017-12-08 07:27] LABS: HEMOGLOBIN 11.1 G/DL (11.9-15.5); MCH 29.8 PG (29.0-34.0); MCHC 32.6 G/DL (30.0-36.0); MCV 91.2 FL (83-99); PLATELET COUNT 168 K/uL (156-360); RBC DIS.WIDTH-CV 14.8 % (11.8-14.6); RED BLOOD COUNT 3.73 M/uL (3.80-5.20); WHITE BLOOD COUNT 5.2 K/uL (4.1-10.2)
[2017-12-08 07:56] LABS: CHLORIDE 107 MEQ/L (99-109); CREATININE 0.8 MG/DL (0.6-1.3); GFR ESTIMATE (CALCULATED) > 59 mL/min/; GLUCOSE 101 mg/dL (70-99); POTASSIUM 4.2 MEQ/L (3.7-5.4); SODIUM 142 MEQ/L (136-147); TROP-I INTERPRETATION NEGATIVE; TROPONIN-I < 0.01 ng/mL (0.0-0.30); UREA NITROGEN (BUN) 14 mg/dL (9-23)
[2017-12-08 08:36] VITALS: BP 137/65
== END 2017-12-08 08:38 | disposition home or self-care (01) ==
LOC: EME → EDBD 06:29 → EME 06:29
PROVIDERS: Nurse Practitioner Family
DX: R60.0 Localized edema (principal); I50.9 Heart failure, unspecified; R07.89 Other chest pain; I48.91 Unspecified atrial fibrillation; Z86.718 Personal history of other venous thrombosis and embolism; Z79.01 Long term (current) use of anticoagulants; J45.909 Unspecified asthma, uncomplicated; E78.5 Hyperlipidemia, unspecified
CPT/HCPCS: 71046; 80048; 83880; 84484; 85027; 93005; 99281; 99285

== ENCOUNTER 2017-12-15 23:34 | Emergency (ER) | payer OTHER ==
[~2017-12-15] VITALS: Ht 162.6 cm; Wt 140.7 kg
[2017-12-16 00:09] LABS: HEMOGLOBIN 11.1 G/DL (11.9-15.5); MCH 29.8 PG (29.0-34.0); MCHC 32.6 G/DL (30.0-36.0); MCV 91.2 FL (83-99); PLATELET COUNT 192 K/uL (156-360); RBC DIS.WIDTH-CV 14.9 % (11.8-14.6); RBC DIS.WIDTH-SD 49.6 % (39-53); RED BLOOD COUNT 3.73 M/uL (3.80-5.20); WHITE BLOOD COUNT 6.5 K/uL (4.1-10.2)
[2017-12-16 00:12] LABS: CHLORIDE 102 mEq/L (99-109); SODIUM 141 mEq/L (136-147)
[2017-12-16 00:14] LABS: GLUCOSE 105 mg/dL (70-99)
[2017-12-16 00:18] LABS: CREATININE 0.7 mg/dL (0.6-1.3); GFR ESTIMATE (CALCULATED) > 59 mL/min/
[2017-12-16 00:19] LABS: UREA NITROGEN (BUN) 24 mg/dL (9-23)
[2017-12-16 00:26] LABS: TROP-I INTERPRETATION NEGATIVE; TROPONIN-I < 0.01 ng/mL (0.0-0.30)
[2017-12-16 01:12] VITALS: BP 128/74
== END 2017-12-16 01:13 | disposition home or self-care (01) ==
LOC: EME → EDBD 23:34 → EME 12-16 01:13
PROVIDERS: Emergency Medicine
DX: R07.9 Chest pain, unspecified (principal); K21.9 Gastro-esophageal reflux disease without esophagitis; I50.9 Heart failure, unspecified; E78.5 Hyperlipidemia, unspecified; J45.909 Unspecified asthma, uncomplicated; F41.9 Anxiety disorder, unspecified; F32.9 Major depressive disorder, single episode, unspecified; Z90.49 Acquired absence of other specified parts of digestive tract; Z86.718 Personal history of other venous thrombosis and embolism; Z88.7 Allergy status to serum and vaccine; Z88.2 Allergy status to sulfonamides; Z88.5 Allergy status to narcotic agent; Z88.6 Allergy status to analgesic agent
CPT/HCPCS: 71046; 80048; 81003; 84484; 85027; 93005; 99281; 99285

== ENCOUNTER 2017-12-19 01:41 | Emergency (ER) | payer OTHER ==
[~2017-12-19] VITALS: Ht 162.6 cm; Wt 139.0 kg
[2017-12-19 02:17] LABS: HEMATOCRIT 34.3 % (36.0-46.0); HEMOGLOBIN 11.2 G/DL (11.9-15.5); MCH 29.6 PG (29.0-34.0); MCHC 32.7 G/DL (30.0-36.0); MCV 90.7 FL (83-99); PLATELET COUNT 187 K/uL (156-360); RBC DIS.WIDTH-CV 15.2 % (11.8-14.6); RBC DIS.WIDTH-SD 50.6 % (39-53); RED BLOOD COUNT 3.78 M/uL (3.80-5.20); WHITE BLOOD COUNT 5.8 K/uL (4.1-10.2)
[2017-12-19 02:29] LABS: ALBUMIN 3.7 g/dL (3.2-4.8); CHLORIDE 105 mEq/L (99-109); POTASSIUM 3.9 mEq/L (3.7-5.4); SODIUM 143 mEq/L (136-147)
[2017-12-19 02:31] LABS: GLUCOSE 113 mg/dL (70-99)
[2017-12-19 02:32] LABS: TOTAL PROTEIN 7.1 g/dL (6.4-8.3)
[2017-12-19 02:33] LABS: TOTAL BILIRUBIN 0.3 mg/dL (0.0-1.0)
[2017-12-19 02:35] LABS: ALKALINE PHOSPHATASE 107 IU/L (3-129); CREATININE 0.8 mg/dL (0.6-1.3); GFR ESTIMATE (CALCULATED) > 59 mL/min/
[2017-12-19 02:36] LABS: UREA NITROGEN (BUN) 25 mg/dL (9-23)
[2017-12-19 02:37] LABS: AST (GOT) 13 IU/L (2-34)
[2017-12-19 02:38] LABS: ALT (GPT) 7 IU/L (3-49)
[2017-12-19 02:42] LABS: TROP-I INTERPRETATION NEGATIVE; TROPONIN-I < 0.01 ng/mL (0.0-0.30)
[2017-12-19 05:18] LABS: VALPROIC ACID (DEPAKOTE) 19.1 MCG/ML (50-100)
[2017-12-19 05:41] LABS: TROP-I INTERPRETATION NEGATIVE; TROPONIN-I < 0.01 ng/mL (0.0-0.30)
[2017-12-19 06:19] VITALS: BP 120/62
== END 2017-12-19 06:21 | disposition home or self-care (01) ==
LOC: EME → EDBD 01:41 → EME 02:25
PROVIDERS: Emergency Medicine
DX: R07.9 Chest pain, unspecified (principal); Z86.79 Personal history of other diseases of the circulatory system; Z86.718 Personal history of other venous thrombosis and embolism; I48.91 Unspecified atrial fibrillation; Z79.01 Long term (current) use of anticoagulants; E78.5 Hyperlipidemia, unspecified; J45.909 Unspecified asthma, uncomplicated; F32.9 Major depressive disorder, single episode, unspecified; K21.9 Gastro-esophageal reflux disease without esophagitis; F41.9 Anxiety disorder, unspecified; Z88.5 Allergy status to narcotic agent; Z88.2 Allergy status to sulfonamides; Z88.6 Allergy status to analgesic agent
CPT/HCPCS: 71046; 80053; 80164; 83880; 84484; 85027; 93005; 99281; 99285

== ENCOUNTER 2018-01-06 03:45 | Emergency (ER) | payer OTHER ==
[~2018-01-06] VITALS: Ht 162.6 cm; Wt 141.3 kg
[2018-01-06 04:49] LABS: HEMATOCRIT 33.1 % (36.0-46.0); HEMOGLOBIN 10.8 G/DL (11.9-15.5); MCH 29.8 PG (29.0-34.0); MCHC 32.6 G/DL (30.0-36.0); MCV 91.4 FL (83-99); PLATELET COUNT 175 K/uL (156-360); RBC DIS.WIDTH-CV 15.7 % (11.8-14.6); RBC DIS.WIDTH-SD 52.3 % (39-53); RED BLOOD COUNT 3.62 M/uL (3.80-5.20); WHITE BLOOD COUNT 6.1 K/uL (4.1-10.2)
[2018-01-06 04:59] LABS: ALBUMIN 3.5 g/dL (3.2-4.8); CHLORIDE 105 mEq/L (99-109); POTASSIUM 4.3 mEq/L (3.7-5.4); SODIUM 142 mEq/L (136-147)
[2018-01-06 05:01] LABS: GLUCOSE 103 mg/dL (70-99); TOTAL PROTEIN 6.6 g/dL (6.4-8.3)
[2018-01-06 05:03] LABS: TOTAL BILIRUBIN 0.2 mg/dL (0.0-1.0)
[2018-01-06 05:05] LABS: ALKALINE PHOSPHATASE 92 IU/L (3-129); CREATININE 0.8 mg/dL (0.6-1.3); GFR ESTIMATE (CALCULATED) > 59 mL/min/
[2018-01-06 05:06] LABS: UREA NITROGEN (BUN) 35 mg/dL (9-23)
[2018-01-06 05:07] LABS: AST (GOT) 15 IU/L (2-34)
[2018-01-06 05:08] LABS: ALT (GPT) 8 IU/L (3-49)
[2018-01-06 05:11] LABS: TROP-I INTERPRETATION NEGATIVE; TROPONIN-I 0.01 ng/mL (0.0-0.30)
[2018-01-06 06:00] VITALS: BP 130/70
== END 2018-01-06 06:01 | disposition home or self-care (01) ==
LOC: EME 03:45
PROVIDERS: Emergency Medicine
DX: R07.9 Chest pain, unspecified (principal); I48.91 Unspecified atrial fibrillation; K21.9 Gastro-esophageal reflux disease without esophagitis; I50.9 Heart failure, unspecified; E78.5 Hyperlipidemia, unspecified; J45.909 Unspecified asthma, uncomplicated; F41.9 Anxiety disorder, unspecified; F32.9 Major depressive disorder, single episode, unspecified; Z86.718 Personal history of other venous thrombosis and embolism; Z90.49 Acquired absence of other specified parts of digestive tract; Z88.2 Allergy status to sulfonamides; Z88.7 Allergy status to serum and vaccine; Z88.5 Allergy status to narcotic agent; Z88.6 Allergy status to analgesic agent; Z88.8 Allergy status to other drugs, medicaments and biological substances
CPT/HCPCS: 80053; 84484; 85027; 93005; 94640

== ENCOUNTER 2018-01-07 01:58 | Emergency (ER) | payer OTHER ==
[~2018-01-07] VITALS: Ht 162.6 cm; Wt 147.4 kg
[2018-01-07 03:17] VITALS: BP 128/58
== END 2018-01-07 03:18 | disposition home or self-care (01) ==
LOC: EME → EDBD 01:58 → EME 03:18
DX: R06.00 Dyspnea, unspecified (principal); G47.30 Sleep apnea, unspecified; J45.909 Unspecified asthma, uncomplicated; I50.9 Heart failure, unspecified; E78.5 Hyperlipidemia, unspecified; Z86.718 Personal history of other venous thrombosis and embolism; Z88.2 Allergy status to sulfonamides; Z91.19 Patient's noncompliance with other medical treatment and regimen
CPT/HCPCS: 94640; 99281; 99283

== ENCOUNTER 2018-01-08 22:59 | Emergency (ER) | payer OTHER ==
[~2018-01-08] VITALS: Ht 162.6 cm; Wt 143.6 kg
[2018-01-08 23:24] LABS: HEMATOCRIT 33.3 % (36.0-46.0); HEMOGLOBIN 10.8 G/DL (11.9-15.5); MCH 29.3 PG (29.0-34.0); MCHC 32.4 G/DL (30.0-36.0); MCV 90.5 FL (83-99); PLATELET COUNT 176 K/uL (156-360); RBC DIS.WIDTH-CV 15.7 % (11.8-14.6); RBC DIS.WIDTH-SD 51.9 % (39-53); RED BLOOD COUNT 3.68 M/uL (3.80-5.20); WHITE BLOOD COUNT 6.6 K/uL (4.1-10.2)
[2018-01-08 23:49] LABS: ALBUMIN 3.9 g/dL (3.2-4.8)
[2018-01-08 23:50] LABS: CHLORIDE 103 mEq/L (99-109); POTASSIUM 3.7 mEq/L (3.7-5.4); SODIUM 143 mEq/L (136-147)
[2018-01-08 23:52] LABS: TOTAL PROTEIN 7.2 g/dL (6.4-8.3)
[2018-01-08 23:55] LABS: ALKALINE PHOSPHATASE 105 IU/L (3-129)
[2018-01-08 23:56] LABS: CREATININE 0.8 mg/dL (0.6-1.3); GFR ESTIMATE (CALCULATED) > 59 mL/min/
[2018-01-08 23:57] LABS: AST (GOT) 17 IU/L (2-34); UREA NITROGEN (BUN) 21 mg/dL (9-23)
[2018-01-08 23:59] LABS: ALT (GPT) 12 IU/L (3-49); LIPASE 29 U/L (1.0-51.0)
[2018-01-09 00:03] LABS: GLUCOSE 112 mg/dL (70-99); TOTAL BILIRUBIN 0.4 mg/dL (0.0-1.0)
[2018-01-09 00:06] LABS: TROP-I INTERPRETATION NEGATIVE; TROPONIN-I < 0.01 ng/mL (0.0-0.30)
[2018-01-09] MEDS ORDERED: MECLIZINE HCL25 MG PO (01:41)
[2018-01-09 02:01] VITALS: BP 143/67
== END 2018-01-09 02:09 | disposition home or self-care (01) ==
LOC: EME → EDBD 22:59 → EME 22:59
PROVIDERS: Emergency Medicine
DX: R42 Dizziness and giddiness (principal); D64.9 Anemia, unspecified; E86.0 Dehydration; R35.0 Frequency of micturition; R06.02 Shortness of breath; M85.2 Hyperostosis of skull; R60.0 Localized edema; E78.5 Hyperlipidemia, unspecified; J45.909 Unspecified asthma, uncomplicated; Z86.718 Personal history of other venous thrombosis and embolism; Z90.49 Acquired absence of other specified parts of digestive tract
CPT/HCPCS: 70450; 71045; 80053; 83690; 83880; 84484; 85027; 93005; 99281; 99284

== ENCOUNTER 2018-01-09 22:27 | Emergency (ER) | payer OTHER ==
[~2018-01-09] VITALS: Ht 162.6 cm; Wt 142.7 kg
[~2018-01-09 22:27] MED LIST changes: +MECLIZINE HCL25 MG PO
[2018-01-10 01:56] VITALS: BP 134/78
== END 2018-01-10 01:57 | disposition home or self-care (01) ==
LOC: EME → EDBD 22:27 → EME 01-10 01:57
DX: I87.8 Other specified disorders of veins (principal); Z48.00 Encounter for change or removal of nonsurgical wound dressing; E78.5 Hyperlipidemia, unspecified; K21.9 Gastro-esophageal reflux disease without esophagitis; I50.9 Heart failure, unspecified; J45.909 Unspecified asthma, uncomplicated; G43.909 Migraine, unspecified, not intractable, without status migrainosus; F41.9 Anxiety disorder, unspecified; F32.9 Major depressive disorder, single episode, unspecified; Z79.51 Long term (current) use of inhaled steroids; Z86.718 Personal history of other venous thrombosis and embolism; Z87.19 Personal history of other diseases of the digestive system; Z90.49 Acquired absence of other specified parts of digestive tract; Z88.7 Allergy status to serum and vaccine; Z88.2 Allergy status to sulfonamides; Z88.5 Allergy status to narcotic agent; Z88.8 Allergy status to other drugs, medicaments and biological substances; Z88.6 Allergy status to analgesic agent
CPT/HCPCS: 99281; 99284

== ENCOUNTER 2018-01-11 23:14 | Emergency (ER) | payer OTHER ==
[~2018-01-11] VITALS: Ht 162.6 cm; Wt 138.0 kg
[2018-01-11 23:33] LABS: HEMATOCRIT 38.5 % (36.0-46.0); HEMOGLOBIN 12.5 G/DL (11.9-15.5); MCH 28.8 PG (29.0-34.0); MCHC 32.5 G/DL (30.0-36.0); MCV 88.7 FL (83-99); RBC DIS.WIDTH-CV 15.3 % (11.8-14.6); RBC DIS.WIDTH-SD 49.6 % (39-53); RED BLOOD COUNT 4.34 M/uL (3.80-5.20); WHITE BLOOD COUNT 8.1 K/uL (4.1-10.2)
[2018-01-11 23:43] LABS: PLATELET COUNT 230 K/uL (156-360)
[2018-01-11 23:50] LABS: CHLORIDE 93 mEq/L (99-109); POTASSIUM 3.3 mEq/L (3.7-5.4); SODIUM 139 mEq/L (136-147)
[2018-01-11 23:52] LABS: GLUCOSE 117 mg/dL (70-99)
[2018-01-11 23:56] LABS: CREATININE 0.9 mg/dL (0.6-1.3); GFR ESTIMATE (CALCULATED) > 59 mL/min/
[2018-01-11 23:57] LABS: UREA NITROGEN (BUN) 28 mg/dL (9-23)
[2018-01-12 00:04] LABS: TROP-I INTERPRETATION NEGATIVE; TROPONIN-I 0.01 ng/mL (0.0-0.30)
[2018-01-12 03:47] VITALS: BP 105/53
== END 2018-01-12 03:48 | disposition home or self-care (01) ==
LOC: EME 23:14
DX: R07.9 Chest pain, unspecified (principal); G89.29 Other chronic pain; M79.605 Pain in left leg; M79.604 Pain in right leg; E78.5 Hyperlipidemia, unspecified; I48.91 Unspecified atrial fibrillation; Z79.01 Long term (current) use of anticoagulants; Z86.718 Personal history of other venous thrombosis and embolism; I50.9 Heart failure, unspecified; F32.9 Major depressive disorder, single episode, unspecified; F41.9 Anxiety disorder, unspecified; J45.909 Unspecified asthma, uncomplicated; K21.9 Gastro-esophageal reflux disease without esophagitis; Z88.2 Allergy status to sulfonamides; Z88.5 Allergy status to narcotic agent; Z88.6 Allergy status to analgesic agent
CPT/HCPCS: 71046; 80048; 84484; 85027; 93005; 99281; 99284

== ENCOUNTER 2018-01-14 00:31 | Emergency (ER) | payer OTHER ==
[~2018-01-14] VITALS: Ht 165.1 cm; Wt 139.0 kg
[2018-01-14 01:45] VITALS: BP 109/73
== END 2018-01-14 01:45 | disposition home or self-care (01) ==
LOC: EME → EDBD 00:31 → EME 00:31
DX: R06.00 Dyspnea, unspecified (principal); J45.909 Unspecified asthma, uncomplicated; E78.5 Hyperlipidemia, unspecified; Z86.718 Personal history of other venous thrombosis and embolism
CPT/HCPCS: 94640; 99281; 99283

== ENCOUNTER 2018-03-07 08:25 | Emergency (ER) | payer OTHER ==
[~2018-03-07] VITALS: Ht 162.6 cm; Wt 156.8 kg
[2018-03-07 09:38] LABS: TROP-I INTERPRETATION NEGATIVE; TROPONIN-I < 0.01 ng/mL (0.0-0.30)
[2018-03-07 10:57] VITALS: BP 134/76
== END 2018-03-07 11:14 | disposition home or self-care (01) ==
LOC: EME → EDBD 08:25 → EME 11:14
PROVIDERS: Emergency Medicine
DX: R07.9 Chest pain, unspecified (principal); I50.9 Heart failure, unspecified; E78.5 Hyperlipidemia, unspecified; Z86.718 Personal history of other venous thrombosis and embolism; Z88.2 Allergy status to sulfonamides
CPT/HCPCS: 82948; 83880; 84484; 93005; 99281; 99285